=== PATIENT | female | born 1965 | race Caucasian/White ===

== ENCOUNTER 2018-01-10 23:53 | Inpatient (IN) | payer OTHER ==
--- NOTE | 2018-01-11 00:03 | HP ---
COWS - Scale Resting Pulse: 1= SC 81-100 Sweatin=Flushed/Facial Moisture Restless Observation: 3= Extraneous Movement Pupil Size: 1= Pupils >than Normal Bone or Joint Aches: 4=Acute Joint/Muscle Pain Runny Nose/ Eye Tearin= Nasal Congestion GI Upset > 30mins: 3= Vomiting/Diarrhea Tremor Observation: 2= Slight Tremor Visible Yawning Observation: 0= None Anxiety or Irritability: 2=Irritable/Anxious Goose Flesh Skin: 0=Smooth Skin COWS Score: 19 CIWA Score - CIWA Score Nausea/Vomitin Muscle Tremors: 4-Moderate,w/Arms Extend Anxiety: 4-Mod. Anxious/Guarded Agitation: 4-Moderately Restless Paroxysmal Sweats: No Perspiration Orientation: 0-Oriented Tacttile Disturbances: 0-None Auditory Disturbances: 0-None Visual Disturbances: 0-None Headache: 3-Moderate CIWA-Ar Total Score: 18 Admission ROS [facility] - HPI Chief Complaint: c/o withdrawal sx's from heroin. seeking detox txment Allergies/Adverse Reactions: Allergies Allergy/AdvReac Type Severity Reaction Status Date / Time No Known Allergies Allergy Verified 01/10/18 23:57 History of Present Illness: 52 Y.O FEMALE WITH LONG HX/O OPIOID DEPENDENCE SEEKING DETOX. CLIENT IS ALSO PRESCRIBED VALIUM. SHE WAS MADE AWARE THAT SHE WOULD BE DETOXED.SHE VERBALIZED UNDERSTANDING. SHE IS KNOWN TO THIS DETOX. SELF REFERRED. DENIES LEGALS. REPORTS 9 YEARS CLEAN TIME RELAPSING 4 MONTHS AGO Exam Limitations: No Limitations - Ebola screening Have you traveled outside of the country in the last 21 days: No (N) Have you had contact with anyone from an Ebola affected area: No Do you have a fever: No - Review of Systems Constitutional: Chills, Loss of Appetite, Malaise, Night Sweats, Unintentional Wgt. Loss EENT: reports: Nose Congestion Respiratory: reports: No Symptoms reported Cardiac: reports: No Symptoms Reported GI: reports: Nausea, Poor Appetite, Poor Fluid Intake, Vomiting, Abdominal cramping : reports: No Symptoms Reported Musculoskeletal: reports: Back Pain, Joint Pain Integumentary: reports: No Symptoms Reported Neuro: reports: No Symptoms reported Endocrine: reports: No Symptoms Reported Hematology: reports: No Symptoms Reported Psychiatric: reports: Anxious, Depressed, other (PTSD) Other Systems: Reviewed and Negative Patient History - Patient Medical History Hx Anemia: No Hx Asthma: No Hx Chronic Obstructive Pulmonary Disease (COPD): No Hx Cancer: No Hx Cardiac Disorders: No Hx Congestive Heart Failure: No Hx Hypertension: No Hx Hypercholesterolemia: No Hx Pacemaker: No HX Cerebrovascular Accident: No Hx Seizures: No Hx Dementia: No Hx Diabetes: No Hx Gastrointestinal Disorders: No Hx Liver Disease: No Hx Genitourinary Disorders: No Hx Sexually Transmitted Disorders: No Hx Renal Disease (ESRD): No Hx Thyroid Disease: No Hx Human Immunodeficiency Virus (HIV): No Hx Hepatitis C: No Hx Depression: No Hx Suicide Attempt: No Hx Bipolar Disorder: No Hx Schizophrenia: No Other Medical History: PTSD - Patient Surgical History Past Surgical History: Yes Hx Orthopedic Surgery: Yes (L KNEE) Anesthesia Reaction: No - PPD History Previous Implant?: Yes Documented Results: Negative w/o proof Implanted On Prior [facility] Admission?: No PPD to be Administered?: Yes - Reproductive History Patient is a Female of Child Bearing Age (11 -55 yrs old): Yes LMP comment: 12/17/2017 Patient : No ([facility]) - Smoking Cessation Smoking history: Current every day smoker Have you smoked in the past 12 months: Yes Aproximately how many cigarettes per day: 10 Cigars Per Day: 0 Hx Chewing Tobacco Use: No Initiated information on smoking cessation: Yes 'Breaking Loose' booklet given: 01/11/18 - Substance & Tx. History Hx Alcohol Use: No Hx Substance Use: Yes Substance Use Type: Heroin, Prescribed (VALIUM) Hx Substance Use Treatment: Yes ([facility]) - Substances Abused HEROIN Route: Inhalation Frequency: Daily Amount used: 5 BAGS Age of first use: 27 Date of Last Use: 01/10/18 VALIUM Route: Oral Frequency: 3-6 times per week Amount used: 30MG Age of first use: 44 Date of Last Use: 01/09/18 Family Disease History - Family Disease History Family Disease History: Heart Disease: Father (PPM; ALCOHOL), Mother (CVA) Admission Physical Exam [facility] - Physical General Appearance: Yes: Appropriately Dressed, Mild Distress, Tremorous, Irritable HEENTM: Yes: EOMI, Normocephalic, Normal Voice, ANJALI, Pharynx Normal, Nasal Congestion Respiratory: Yes: Chest Non-Tender, Lungs Clear, Normal Breath Sounds, No Respiratory Distress, No Accessory Muscle Use Neck: Yes: No masses,lesions,Nodules, Supple, Trachea in good position Breast: Yes: Breast Exam Deferred Cardiology: Yes: Regular Rhythm, S1, S2, Tachycardia Abdominal: Yes: Normal Bowel Sounds, Non Tender, Flat, Soft Genitourinary: Yes: Within Normal Limits Back: Yes: Within Normal Limits, Other (PSORIATIC RASH) Musculoskeletal: Yes: full range of Motion, Gait Steady Extremities: Yes: Normal Range of Motion, Non-Tender, Tremors Neurological: Yes: shooter helper II-XII NML intact, Fully Oriented, Alert, Motor Strength 5/5 Integumentary: Yes: Dry, Warm, Rash (PSORIASIS) Lymphatic: Yes: Within Normal Limits - Diagnostic (1) Opioid dependence with withdrawal Current Visit: Yes Status: Chronic (2) Sedative, hypnotic or anxiolytic dependence with withdrawal, uncomplicated Current Visit: Yes Status: Chronic (3) Nicotine dependence Current Visit: Yes Status: Chronic Qualifiers: Nicotine product type: cigarettes Substance use status: uncomplicated Qualified Code(s): F17.210 - Nicotine dependence, cigarettes, uncomplicated (4) Psoriasis Current Visit: Yes Status: Chronic Cleared for Admission [facility] - Detox or Rehab [facility] Level of Care: Medically Managed Detox Regimen/Protocol: Methadone/Valium Claeared for Rehab Admission: No
[2018-01-11 00:04] VITALS: BMI 20.5
[2018-01-11] MEDS ORDERED: MAGNESIUM CITRATE 300 ML BOTTLE PO PRN (00:22)
[2018-01-11] MEDS ORDERED: NICOTINE POLACRILEX 2 MG GUM BC PRN (00:22)
[2018-01-11] MEDS ORDERED: MAGNESIUM HYDROX 2400MG/30ML ORAL SUSPENSION 30 ML CUP PO PRN (00:22)
[2018-01-11] MEDS ORDERED: IBUPROFEN 400 MG TABLET (FP) PO PRN (00:22)
[2018-01-11] MEDS ORDERED: diazePAM 5 MG TABLET PO ONE (00:22)
[2018-01-11] MEDS ORDERED: LOPERAMIDE HCL 2 MG CAPSULE PO PRN (00:22)
[2018-01-11] MEDS ORDERED: ACETAMINOPHEN 325 MG TABLET (FP) PO PRN (00:22)
[2018-01-11] MEDS ORDERED: guaiFENesin/D-METHORPHAN HB 10 ML UNIT-DOSE CUPS PO PRN (00:22)
[2018-01-11] MEDS ORDERED: MENTHOL/PHENOL 1 EACH UD MM PRN (00:22)
[2018-01-11] MEDS ORDERED: P-EPHED 60MG/TRIPROLIDI 2.5MG TABLET PO PRN (00:22)
[2018-01-11] MEDS ORDERED: MAG HYDROX/AL HYDROX/SIMETH 30 ML UNIT-DOSE CUP PO PRN (00:22)
[2018-01-11] MEDS ORDERED: METHADONE HCL 10 MG TABLET (FOR DETOX USE ONLY) PO ONE ×3 (00:22→23:00)
[2018-01-11] MEDS: diazePAM 5 MG TABLET PO SCH ×3 (05:57→22:25)
--- NOTE | 2018-01-11 08:39 | EKG ---
Test Reason : Blood Pressure : / mmHG Vent. Rate : 084 BPM Atrial Rate : 084 BPM P-R Int : 128 ms QRS Dur : 094 ms QT Int : 396 ms P-R-T Axes : 053 034 056 degrees QTc Int : 467 ms NORMAL SINUS RHYTHM NORMAL ECG NO PREVIOUS ECGS AVAILABLE Confirmed by DILLAN LORENZ, BRUCE ([id number]) on 01/11/2018 8:39:17 AM Referred By: Adriano Vazquez Confirmed By:BRUCE GRIMALDO MD
[2018-01-11] MEDS: PRENATAL VITAMINS W/ FOLIC ACID TABLET (FP) PO SCH (10:25)
[2018-01-11] MEDS: NICOTINE 14 MG/24 HOURS TOPICAL PATCH TD SCH (10:26)
[2018-01-11] MEDS: diazePAM 5 MG TABLET PO PRN ×2 (10:26→16:57)
--- NOTE | 2018-01-11 10:26 | CONSULT ---
[facility] Psychiatric Consult - Data Date of interview: 01/11/18 Admission source: [facility] Identifying data: Ms Sesay is a 52 years old female seeking detox treatment for heroin and valium Substance Abuse History: Reports history of heroin and valium use. Refer to addiction counselor's note for further information Medical History: Significant for history of orthosurgery left knee. Patient is on suboxone 8 mg/2 mg film daily. Smokes 10 cogarettes daily
--- NOTE | 2018-01-11 13:01 | PN ---
[facility] CIWA - CIWA Score Nausea/Vomitin-Mild Nausea/No Vomiting Muscle Tremors: 4-Moderate,w/Arms Extend Anxiety: 4-Mod. Anxious/Guarded Agitation: 4-Moderately Restless Paroxysmal Sweats: 1-Minimal Palms Moist Orientation: 0-Oriented Tacttile Disturbances: 1-Very Mild Itch/Numbness Auditory Disturbances: 0-None Visual Disturbances: 0-None Headache: 0-None Present CIWA-Ar Total Score: 15 [facility] COWS - Scale Resting Pulse: 0= [place] 80 or Below Sweatin= Chills/Flushing Restless Observation: 3= Extraneous Movement Pupil Size: 0= Normal to Room Light Bone or Joint Aches: 2= Severe Diffuse Aches Runny Nose/ Eye Tearin= Runny Nose/Eyes GI Upset > 30mins: 2= Nausea/Diarrhea Tremor Observation of Outstretched Hands: 2= Slight Tremor Visible Yawning Observation: 2= >3x During Session Anxiety or Irritability: 2=Irritable/Anxious Goose Flesh Skin: 0=Smooth Skin COWS Score: 16 [facility] Progress Note (SOAP) Subjective: sweat tremor joint ache irritable agitation Objective: 01/11/18 13:01 Vital Signs Temperature 98.4 F 01/11/18 10:15 Pulse Rate 68 01/11/18 10:15 Respiratory Rate 16 01/11/18 10:15 Blood Pressure 113/64 01/11/18 10:15 O2 Sat by Pulse Oximetry (%) Laboratory Last Values HIV 1&2 Antibody Screen Negative 01/11/18 08:00 HIV P24 Antigen Negative 01/11/18 08:00 lab noted Assessment: 01/11/18 13:02 withdrawal sx Plan: continue detox
--- NOTE | 2018-01-11 15:04 | PN ---
S Progress Note Note: Patient was approached on more than 2 occasions including lunch time by song writer solicitating interview. She said that she was too tired to talk or to walk to the office. She asked that interview be postponed for tomorrow
[2018-01-11] MEDS: THIAMINE HCL 100 MG TABLET (FP) PO SCH (22:25)
[2018-01-12] MEDS: diazePAM 5 MG TABLET PO SCH ×3 (05:20→22:06)
[2018-01-12] MEDS: diazePAM 5 MG TABLET PO PRN ×3 (07:35→16:40)
--- NOTE | 2018-01-12 07:44 | CONSULT ---
[facility] Psychiatric Consult - Data Date of interview: 01/12/18 Admission source: [facility] Identifying data: This is a 52 years old female with nom psychiatric hospitalization history, with long history [id number] Opioids depenmdency, valium abuse , selfreferred and looking for detoxification frpm Opioids, Benzodiazeoivs and Nicotine Substance Abuse History: Smoking Cessation. Smoking history: Current every day smoker. Have you smoked in the past 12 months: Yes. Aproximately how many cigarettes per day: 10. Cigars Per Day: 0. Hx Chewing Tobacco Use: No. Initiated information on smoking cessation: Yes. 'Breaking Loose' booklet given : 01/11/18. - Substance & Tx. History. Hx Alcohol Use: No. Hx Substance Use: Yes. Substance Use Type: Heroin, Prescribed ([facility]). Hx Substance Use Treatment: Yes ([facility] - Substances Abused. HEROIN. Route: Inhalation. Frequency: Daily. Amount used: 5 BAGS. Age of first use: 27. Date of Last Use : 01/10/18. VALIUM. Route: Oral. Frequency: 3-6 times per week. Amount used: 30MG. Age of first use: 44. Date of Last Use: 01/09/18 Medical History: Psoriasis history Psychiatric History: Denies past psychiatric history Physical/Sexual Abuse/Trauma History: Denies Additional Comment: Observation. Detox Unit Care Protocol Mental Status Exam - Mental Status Exam Alert and Oriented to: Person Cognitive Function: Fair Patient Appearance: Unkempt Mood: Sad Affect: Flat Patient Behavior: Sedated Speech Pattern: Delayed Voice Loudness: Mildly Soft/Quiet Thought Process: Goal Oriented Thought Disorder: Being Controlled Hallucinations: Denies Suicidal Ideation: Denies Homicidal Ideation: Denies Insight/Judgement: Fair Sleep: Difficulty falling asleep Appetite: Weight loss Muscle strength/Tone: Mild Hypotonicity Gait/Station: Normal Additional Comments: Observation. Detox Unit Care Protocol Psychiatric Findings - Problem List ([place] 1, 2,3) (1) Drug-induced mood disorder Current Visit: Yes Status: Suspected (2) Nicotine dependence Current Visit: Yes Status: Chronic Qualifiers: Nicotine product type: cigarettes Substance use status: uncomplicated Qualified Code(s): F17.210 - Nicotine dependence, cigarettes, uncomplicated (3) Opioid dependence with withdrawal Current Visit: Yes Status: Chronic (4) Sedative, hypnotic or anxiolytic dependence with withdrawal, uncomplicated Current Visit: Yes Status: Chronic - Initial Treatment Plan Initial Treatment Plan: Observation. Detox Unit Care Protocol
[2018-01-12] MEDS ORDERED: METHADONE HCL 10 MG TABLET (FOR DETOX USE ONLY) PO SCH (10:00)
[2018-01-12 10:04] LABS: HEMATOCRIT 38.3 % (32.4-45.2); HEMOGLOBIN 12.4 GM/dL (10.7-15.3); MCHC 32.3 g/dl (32.0-36.0); MEAN CELL VOLUME 86.8 fl (80-96); MEAN PLT VOLUME 8.8 fl (7.5-11.1); PLATELET COUNT 191 K/MM3 (134-434); RBC 4.41 M/mm3 (3.60-5.2)
[2018-01-12 10:19] LABS: ALBUMIN 3.4 g/dl (3.4-5.0); ANION GAP 6 (8-16); BLOOD UREA NITROGEN 16 mg/dL (7-18); CHLORIDE 108 mmol/L (98-107); CO2 30 mmol/L (21-32); GLUCOSE,RANDOM 87 mg/dL (74-106); POTASSIUM 3.8 mmol/L (3.5-5.1); SGPT/ALT 17 U/L (12-78); SODIUM 144 mmol/L (136-145)
[2018-01-12 10:21] LABS: ALK PHOS 64 U/L (45-117); BILIRUBIN,TOTAL 0.5 mg/dL (0.2-1.0); CALCIUM 8.2 mg/dL (8.5-10.1); CREATININE 0.8 mg/dL (0.55-1.02); SGOT/AST 11 U/L (15-37); TOT PROT 5.8 g/dl (6.4-8.2)
[2018-01-12] MEDS: PRENATAL VITAMINS W/ FOLIC ACID TABLET (FP) PO SCH (10:38)
[2018-01-12] MEDS: NICOTINE 14 MG/24 HOURS TOPICAL PATCH TD SCH (10:38)
--- NOTE | 2018-01-12 10:38 | PN ---
S CIWA - CIWA Score Nausea/Vomitin-No Nausea/No Vomiting Muscle Tremors: 4-Moderate,w/Arms Extend Anxiety: 4-Mod. Anxious/Guarded Agitation: 3 Paroxysmal Sweats: 1-Minimal Palms Moist Orientation: 0-Oriented Tacttile Disturbances: 0-None Auditory Disturbances: 0-None Visual Disturbances: 0-None Headache: 0-None Present CIWA-Ar Total Score: 12 [facility] COWS - Scale Resting Pulse: 0= [place] 80 or Below Sweatin= Chills/Flushing Restless Observation: 3= Extraneous Movement Pupil Size: 0= Normal to Room Light Bone or Joint Aches: 1= Mild Discomfort Runny Nose/ Eye Tearin= Nasal Congestion GI Upset > 30mins: 1= Stomach Cramp Tremor Observation of Outstretched Hands: 2= Slight Tremor Visible Yawning Observation: 2= >3x During Session Anxiety or Irritability: 2=Irritable/Anxious Goose Flesh Skin: 0=Smooth Skin COWS Score: 13 S Progress Note (SOAP) Subjective: sweat tremor irritable restlessness agitation joint ache Objective: 01/12/18 10:36 Vital Signs Temperature 97.3 F L 01/12/18 06:33 Pulse Rate 63 01/12/18 06:33 Respiratory Rate 18 01/12/18 06:33 Blood Pressure 157/89 01/12/18 06:33 O2 Sat by Pulse Oximetry (%) Laboratory Last Values WBC 7.0 K/mm3 (4.0-10.0) 01/12/18 06:00 RBC 4.41 M/mm3 (3.60-5.2) 01/12/18 06:00 Hgb 12.4 GM/dL (10.7-15.3) 01/12/18 06:00 Hct 38.3 % (32.4-45.2) 01/12/18 06:00 MCV 86.8 fl (80-96) 01/12/18 06:00 MCH 28.0 pg (25.7-33.7) 01/12/18 06:00 MCHC 32.3 g/dl (32.0-36.0) 01/12/18 06:00 RDW 13.0 % (11.6-15.6) 01/12/18 06:00 Plt Count 191 K/MM3 (134-434) 01/12/18 06:00 MPV 8.8 fl (7.5-11.1) 01/12/18 06:00 Sodium 144 mmol/L (136-145) 01/12/18 06:00 Potassium 3.8 mmol/L (3.5-5.1) 01/12/18 06:00 Chloride 108 mmol/L (98-107) H 01/12/18 06:00 Carbon Dioxide 30 mmol/L (21-32) 01/12/18 06:00 Anion Gap 6 (8-16) L 01/12/18 06:00 BUN 16 mg/dL (7-18) 01/12/18 06:00 Creatinine 0.8 mg/dL (0.55-1.02) 01/12/18 06:00 Creat Clearance w eGFR > 60 (>60) 01/12/18 06:00 Random Glucose 87 mg/dL (74-106) 01/12/18 06:00 Calcium 8.2 mg/dL (8.5-10.1) L 01/12/18 06:00 Total Bilirubin 0.5 mg/dL (0.2-1.0) 01/12/18 06:00 AST 11 U/L (15-37) L 01/12/18 06:00 ALT 17 U/L (12-78) 01/12/18 06:00 Alkaline Phosphatase 64 U/L (45-117) 01/12/18 06:00 Total Protein 5.8 g/dl (6.4-8.2) L 01/12/18 06:00 Albumin 3.4 g/dl (3.4-5.0) 01/12/18 06:00 HIV 1&2 Antibody Screen Negative 01/11/18 08:00 HIV P24 Antigen Negative 01/11/18 08:00 lab noted Assessment: 01/12/18 10:36 withdrawal sx Plan: continue detox
[2018-01-12] MEDS ORDERED: METHOCARBAMOL 500 MG TABLET PO ONE (11:35)
[2018-01-12 14:20] LABS: URINE APPEARANCE SLCLOUDY; URINE BILIRUBIN NEGATIVE (NEGATIVE); URINE BLOOD NEGATIVE (NEGATIVE); URINE COLOR YELLOW; URINE GLUCOSE (UA) NEGATIVE (NEGATIVE); URINE KETONE NEGATIVE (NEGATIVE); URINE LEUK ESTERASE NEGATIVE (NEGATIVE); URINE NITRITE NEGATIVE (NEGATIVE); URINE PROTEIN NEGATIVE (NEGATIVE)
[2018-01-12] MEDS: diphenhydrAMINE HCL 25 MG CAPSULE (FP) PO PRN (22:06)
[2018-01-12] MEDS: THIAMINE HCL 100 MG TABLET (FP) PO SCH (22:06)
[2018-01-13] MEDS: diazePAM 5 MG TABLET PO PRN ×3 (05:51→17:53)
--- NOTE | 2018-01-13 09:23 | PN ---
[facility] Progress Note (SOAP) Subjective: sweat tremor anxiety joint aches restlessness irritability patient has confidence that by 01/15/18 should be able to transfer to [facility] continue her recovery journal Objective: 01/13/18 09:22 Vital Signs Temperature 97.7 F 01/13/18 06:28 Pulse Rate 75 01/13/18 06:28 Respiratory Rate 16 01/13/18 06:28 Blood Pressure 128/69 01/13/18 06:28 O2 Sat by Pulse Oximetry (%) Laboratory Last Values WBC 7.0 K/mm3 (4.0-10.0) 01/12/18 06:00 RBC 4.41 M/mm3 (3.60-5.2) 01/12/18 06:00 Hgb 12.4 GM/dL (10.7-15.3) 01/12/18 06:00 Hct 38.3 % (32.4-45.2) 01/12/18 06:00 MCV 86.8 fl (80-96) 01/12/18 06:00 MCH 28.0 pg (25.7-33.7) 01/12/18 06:00 MCHC 32.3 g/dl (32.0-36.0) 01/12/18 06:00 RDW 13.0 % (11.6-15.6) 01/12/18 06:00 Plt Count 191 K/MM3 (134-434) 01/12/18 06:00 MPV 8.8 fl (7.5-11.1) 01/12/18 06:00 Sodium 144 mmol/L (136-145) 01/12/18 06:00 Potassium 3.8 mmol/L (3.5-5.1) 01/12/18 06:00 Chloride 108 mmol/L (98-107) H 01/12/18 06:00 Carbon Dioxide 30 mmol/L (21-32) 01/12/18 06:00 Anion Gap 6 (8-16) L 01/12/18 06:00 BUN 16 mg/dL (7-18) 01/12/18 06:00 Creatinine 0.8 mg/dL (0.55-1.02) 01/12/18 06:00 Creat Clearance w eGFR > 60 (>60) 01/12/18 06:00 Random Glucose 87 mg/dL (74-106) 01/12/18 06:00 Calcium 8.2 mg/dL (8.5-10.1) L 01/12/18 06:00 Total Bilirubin 0.5 mg/dL (0.2-1.0) 01/12/18 06:00 AST 11 U/L (15-37) L 01/12/18 06:00 ALT 17 U/L (12-78) 01/12/18 06:00 Alkaline Phosphatase 64 U/L (45-117) 01/12/18 06:00 Total Protein 5.8 g/dl (6.4-8.2) L 01/12/18 06:00 Albumin 3.4 g/dl (3.4-5.0) 01/12/18 06:00 Urine Color Yellow 01/12/18 12:45 Urine Appearance Slcloudy 01/12/18 12:45 Urine pH 7.0 (5.0-8.0) 01/12/18 12:45 Ur Specific [place] 1.017 (1.001-1.035) 01/12/18 12:45 Urine Protein Negative (NEGATIVE) 01/12/18 12:45 Urine Glucose (UA) Negative (NEGATIVE) 01/12/18 12:45 Urine Ketones Negative (NEGATIVE) 01/12/18 12:45 Urine Blood Negative (NEGATIVE) 01/12/18 12:45 Urine Nitrite Negative (NEGATIVE) 01/12/18 12:45 Urine Bilirubin Negative (NEGATIVE) 01/12/18 12:45 Urine Urobilinogen 2.0 mg/dL (0.2-1.0) H 01/12/18 12:45 Ur Leukocyte Esterase Negative (NEGATIVE) 01/12/18 12:45 RPR Titer Nonreactive (NONREACTIVE) 01/12/18 06:00 HIV 1&2 Antibody Screen Negative 01/11/18 08:00 HIV P24 Antigen Negative 01/11/18 08:00 lab noted Assessment: 01/13/18 09:23 withdrawal sx 01/13/18 09:25 discharge target date 01/15/18 Plan: continue detox one dose methadone 15 mg today 10 shala 01/14/18 5 mg 01/15/18 patient agrees the regimen adjusted
[2018-01-13] MEDS ORDERED: METHADONE HCL 5 MG TABLET (FOR DETOX USE ONLY) PO SCH (10:00)
[2018-01-13] MEDS: diazePAM 5 MG TABLET PO SCH ×2 (10:44→22:31)
[2018-01-13] MEDS: PRENATAL VITAMINS W/ FOLIC ACID TABLET (FP) PO SCH (10:44)
[2018-01-13] MEDS: NICOTINE 14 MG/24 HOURS TOPICAL PATCH TD SCH (10:45)
[2018-01-13] MEDS: diphenhydrAMINE HCL 25 MG CAPSULE (FP) PO PRN (22:30)
[2018-01-13] MEDS: THIAMINE HCL 100 MG TABLET (FP) PO SCH (22:30)
[2018-01-14] MEDS ORDERED: METHADONE HCL 10 MG TABLET (FOR DETOX USE ONLY) PO SCH (10:00)
[2018-01-14] MEDS: diazePAM 5 MG TABLET PO SCH ×2 (10:31→22:09)
[2018-01-14] MEDS: NICOTINE 14 MG/24 HOURS TOPICAL PATCH TD SCH (10:31)
[2018-01-14] MEDS: PRENATAL VITAMINS W/ FOLIC ACID TABLET (FP) PO SCH (10:31)
--- NOTE | 2018-01-14 11:28 | PN ---
S Progress Note (SOAP) Subjective: reports feel better less sweat no tremor tolerates food and fluid well alert oriented x 3 Objective: 01/14/18 11:26 Vital Signs Temperature 98.2 F 01/14/18 10:33 Pulse Rate 77 01/14/18 10:33 Respiratory Rate 18 01/14/18 10:33 Blood Pressure 135/85 01/14/18 10:33 O2 Sat by Pulse Oximetry (%) Laboratory Last Values WBC 7.0 K/mm3 (4.0-10.0) 01/12/18 06:00 RBC 4.41 M/mm3 (3.60-5.2) 01/12/18 06:00 Hgb 12.4 GM/dL (10.7-15.3) 01/12/18 06:00 Hct 38.3 % (32.4-45.2) 01/12/18 06:00 MCV 86.8 fl (80-96) 01/12/18 06:00 MCH 28.0 pg (25.7-33.7) 01/12/18 06:00 MCHC 32.3 g/dl (32.0-36.0) 01/12/18 06:00 RDW 13.0 % (11.6-15.6) 01/12/18 06:00 Plt Count 191 K/MM3 (134-434) 01/12/18 06:00 MPV 8.8 fl (7.5-11.1) 01/12/18 06:00 Sodium 144 mmol/L (136-145) 01/12/18 06:00 Potassium 3.8 mmol/L (3.5-5.1) 01/12/18 06:00 Chloride 108 mmol/L (98-107) H 01/12/18 06:00 Carbon Dioxide 30 mmol/L (21-32) 01/12/18 06:00 Anion Gap 6 (8-16) L 01/12/18 06:00 BUN 16 mg/dL (7-18) 01/12/18 06:00 Creatinine 0.8 mg/dL (0.55-1.02) 01/12/18 06:00 Creat Clearance w eGFR > 60 (>60) 01/12/18 06:00 Random Glucose 87 mg/dL (74-106) 01/12/18 06:00 Calcium 8.2 mg/dL (8.5-10.1) L 01/12/18 06:00 Total Bilirubin 0.5 mg/dL (0.2-1.0) 01/12/18 06:00 AST 11 U/L (15-37) L 01/12/18 06:00 ALT 17 U/L (12-78) 01/12/18 06:00 Alkaline Phosphatase 64 U/L (45-117) 01/12/18 06:00 Total Protein 5.8 g/dl (6.4-8.2) L 01/12/18 06:00 Albumin 3.4 g/dl (3.4-5.0) 01/12/18 06:00 Urine Color Yellow 01/12/18 12:45 Urine Appearance Slcloudy 01/12/18 12:45 Urine pH 7.0 (5.0-8.0) 01/12/18 12:45 Ur Specific [place] 1.017 (1.001-1.035) 01/12/18 12:45 Urine Protein Negative (NEGATIVE) 01/12/18 12:45 Urine Glucose (UA) Negative (NEGATIVE) 01/12/18 12:45 Urine Ketones Negative (NEGATIVE) 01/12/18 12:45 Urine Blood Negative (NEGATIVE) 01/12/18 12:45 Urine Nitrite Negative (NEGATIVE) 01/12/18 12:45 Urine Bilirubin Negative (NEGATIVE) 01/12/18 12:45 Urine Urobilinogen 2.0 mg/dL (0.2-1.0) H 01/12/18 12:45 Ur Leukocyte Esterase Negative (NEGATIVE) 01/12/18 12:45 RPR Titer Nonreactive (NONREACTIVE) 01/12/18 06:00 HIV 1&2 Antibody Screen Negative 01/11/18 08:00 HIV P24 Antigen Negative 01/11/18 08:00 lab noted Assessment: 01/14/18 11:27 mild withdrawal sx Plan: medically supervised detox
[2018-01-14] MEDS ORDERED: hydrOXYzine PAMOATE 50 MG CAPSULE (FP) PO PRN (15:20)
[2018-01-14] MEDS: THIAMINE HCL 100 MG TABLET (FP) PO SCH (22:09)
[2018-01-14] MEDS: diphenhydrAMINE HCL 25 MG CAPSULE (FP) PO PRN ×2 (22:10→22:13)
[2018-01-15] MEDS ORDERED: METHADONE HCL 5 MG TABLET (FOR DETOX USE ONLY) PO SCH (06:00)
[2018-01-15 06:43] VITALS: BP 129/76; PULSE 73; TEMP 97.3
--- NOTE | 2018-01-15 08:32 | DS ---
[facility] Detox Discharge Summary Admission Date: 01/10/18 Discharge Date: 01/15/18 - History Present History: Alcohol Dependence, Sedative Dependence - Physical Exam Results Vital Signs: Vital Signs Temperature 97.3 F L 01/15/18 06:00 Pulse Rate 73 01/15/18 06:00 Respiratory Rate 18 01/15/18 06:00 Blood Pressure 129/76 01/15/18 06:00 O2 Sat by Pulse Oximetry (%) Pertinent Admission Physical Exam Findings: withdrawal sx Laboratory Last Values WBC 7.0 K/mm3 (4.0-10.0) 01/12/18 06:00 RBC 4.41 M/mm3 (3.60-5.2) 01/12/18 06:00 Hgb 12.4 GM/dL (10.7-15.3) 01/12/18 06:00 Hct 38.3 % (32.4-45.2) 01/12/18 06:00 MCV 86.8 fl (80-96) 01/12/18 06:00 MCH 28.0 pg (25.7-33.7) 01/12/18 06:00 MCHC 32.3 g/dl (32.0-36.0) 01/12/18 06:00 RDW 13.0 % (11.6-15.6) 01/12/18 06:00 Plt Count 191 K/MM3 (134-434) 01/12/18 06:00 MPV 8.8 fl (7.5-11.1) 01/12/18 06:00 Sodium 144 mmol/L (136-145) 01/12/18 06:00 Potassium 3.8 mmol/L (3.5-5.1) 01/12/18 06:00 Chloride 108 mmol/L (98-107) H 01/12/18 06:00 Carbon Dioxide 30 mmol/L (21-32) 01/12/18 06:00 Anion Gap 6 (8-16) L 01/12/18 06:00 BUN 16 mg/dL (7-18) 01/12/18 06:00 Creatinine 0.8 mg/dL (0.55-1.02) 01/12/18 06:00 Creat Clearance w eGFR > 60 (>60) 01/12/18 06:00 Random Glucose 87 mg/dL (74-106) 01/12/18 06:00 Calcium 8.2 mg/dL (8.5-10.1) L 01/12/18 06:00 Total Bilirubin 0.5 mg/dL (0.2-1.0) 01/12/18 06:00 AST 11 U/L (15-37) L 01/12/18 06:00 ALT 17 U/L (12-78) 01/12/18 06:00 Alkaline Phosphatase 64 U/L (45-117) 01/12/18 06:00 Total Protein 5.8 g/dl (6.4-8.2) L 01/12/18 06:00 Albumin 3.4 g/dl (3.4-5.0) 01/12/18 06:00 Urine Color Yellow 01/12/18 12:45 Urine Appearance Slcloudy 01/12/18 12:45 Urine pH 7.0 (5.0-8.0) 01/12/18 12:45 Ur Specific [place] 1.017 (1.001-1.035) 01/12/18 12:45 Urine Protein Negative (NEGATIVE) 01/12/18 12:45 Urine Glucose (UA) Negative (NEGATIVE) 01/12/18 12:45 Urine Ketones Negative (NEGATIVE) 01/12/18 12:45 Urine Blood Negative (NEGATIVE) 01/12/18 12:45 Urine Nitrite Negative (NEGATIVE) 01/12/18 12:45 Urine Bilirubin Negative (NEGATIVE) 01/12/18 12:45 Urine Urobilinogen 2.0 mg/dL (0.2-1.0) H 01/12/18 12:45 Ur Leukocyte Esterase Negative (NEGATIVE) 01/12/18 12:45 RPR Titer Nonreactive (NONREACTIVE) 01/12/18 06:00 HIV 1&2 Antibody Screen Negative 01/11/18 08:00 HIV P24 Antigen Negative 01/11/18 08:00 lab noted - Treatment Hospital Course: Detox Protocol Followed, Detoxed Safely, Responded well, Discharged Condition Good, Rehab Referral Accepted Patient has Accepted a Rehab Referral to: [facility] - Medication Discharge Medications: Ambulatory Orders NK [No Known Home Medication] 01/12/18 - Diagnosis (1) Opioid dependence with withdrawal Current Visit: Yes Status: Acute (2) Sedative, hypnotic or anxiolytic dependence with withdrawal, uncomplicated Current Visit: Yes Status: Acute - AMA Did Patient Leave Against Medical Advice: No
[2018-01-15] MEDS: PRENATAL VITAMINS W/ FOLIC ACID TABLET (FP) PO SCH (08:59)
[2018-01-15] MEDS: NICOTINE 14 MG/24 HOURS TOPICAL PATCH TD SCH (09:01)
[2018-01-15] MEDS ORDERED: diazePAM 5 MG TABLET PO SCH (10:00)
[2018-01-15] MEDS ORDERED: METHADONE HCL 10 MG TABLET (FOR DETOX USE ONLY) PO SCH (10:00)
[2018-01-16] MEDS ORDERED: METHADONE HCL 5 MG TABLET (FOR DETOX USE ONLY) PO SCH (06:00)
== END 2018-01-15 09:14 | disposition home or self-care (01) | DRG 773 ==
LOC: YASAS 23:53 → Y6N 23:54
PROVIDERS: ADMIT Internal Medicine; ATTEND Internal Medicine
PROC: HZ2ZZZZ Detoxification Services for Substance Abuse Treatment (ICD-10-PCS; principal; 2018-01-10)
DX: F11.23 Opioid dependence with withdrawal (principal); F13.230 Sedative, hypnotic or anxiolytic dependence with withdrawal, uncomplicated; F17.210 Nicotine dependence, cigarettes, uncomplicated; F19.24 Other psychoactive substance dependence with psychoactive substance-induced mood disorder; L40.9 Psoriasis, unspecified
CPT/HCPCS: 36415; 80053; 81003; 85027; 86593; 87389; 93005; 93010

== ENCOUNTER 2019-03-07 17:53 | Inpatient (IN) | payer OTHER ==
[2019-03-07 18:54] VITALS: BMI 23.3
--- NOTE | 2019-03-07 19:16 | HP ---
CIWA Score Nausea/Vomitin-No Nausea/No Vomiting Muscle Tremors: 4-Moderate,w/Arms Extend Anxiety: 4-Mod. Anxious/Guarded Agitation: 2 Paroxysmal Sweats: 3 (Increased facial moissture) Orientation: 0-Oriented Tacttile Disturbances: 0-None Auditory Disturbances: 0-None Visual Disturbances: 0-None Headache: 2-Mild CIWA-Ar Total Score: 15 - Admission Criteria OASAS Guidelines: Admission for Medically Managed Detox: Requires at least one of the followin. CIWA greater than 12 2. Seizures within the past 24 hours 3. Delirium tremens within the past 24 hours 4. Hallucinations within the past 24 hours 5. Acute intervention needed for co occurring medical disorder 6. Acute intervention needed for co occurring psychiatric disorder 7. Severe withdrawal that cannot be handled at a lower level of care (continued vomiting, continued diarrhea, abnormal vital signs) requiring intravenous medication and/or fluids 8. Patient presents the following: CIWA greater than 12 Admission Criteria Met: Admission criteria met Admission ROS [facility] Chief Complaint: Having withdrawal symptoms from Valium. Allergies/Adverse Reactions: Allergies Allergy/AdvReac Type Severity Reaction Status Date / Time No Known Allergies Allergy Verified 03/07/19 18:54 History of Present Illness: Here requesting valium detox. States wants to continue on Suboxone. Heroin use began at age 27. Had 10 years of sobriety. Restarted use at age 37. Has been on Suboxone for approx 7-10 years. Valium prescribed since . Wants to get off. Last took Valium 2 days go. Nicotine use began at age 16. Switched to intermittent Jhuul use 3-4 days ago. Denies hx seizures, blackouts, overdoses. PMHx: HTN, Herniated disc - LB/Neck; (R) knee pain, Asthma years ago - no recent exacerbation, MHHx: Anxiety. Denies thoughts of harming self or others. Patient states name on last prescription was spelled incorrectly. Patient Name: Ashley White Date: 1965 Address: [address] [address] Sex: Female Rx Written Rx Dispensed Drug Quantity Days Supply Prescriber Name 02/13/2019 02/14/2019 clonazepam 1 mg tablet 60 30 Carlos Shaw MD 02/13/2019 02/13/2019 buprenorphine-naloxone 8-2 mg sl tablet 60 30 Carlos Shaw MD Patient Name: Ashley Sesay Date: 1965 Address: [address] [place] [address] [place] [address] Sex: Female Rx Written Rx Dispensed Drug Quantity Days Supply Prescriber Name 12/29/2018 01/06/2019 suboxone 8 mg-2 mg sl film 8 8 Travis Connell B, MD 12/08/2018 12/09/2018 suboxone 4 mg-1 mg sl film 15 15 Travis Connell B, MD 11/16/2018 11/16/2018 diazepam 10 mg tablet 120 30 Hermelindo Smith MD 10/20/2018 10/21/2018 suboxone 12 mg-3 mg sl film 60 30 Travis Connell B, MD 10/15/2018 10/15/2018 diazepam 10 mg tablet 120 30 Hermelindo Smith MD 09/08/2018 09/21/2018 suboxone 12 mg-3 mg sl film 60 30 Travis Connell B, MD 09/15/2018 09/16/2018 diazepam 10 mg tablet 120 30 Maikol Townsend MD 08/24/2018 08/24/2018 suboxone 12 mg-3 mg sl film 60 30 Conrad Luciano MD 08/12/2018 08/16/2018 suboxone 12 mg-3 mg sl film 14 7 Marc Esparza MD 07/21/2018 07/21/2018 diazepam 10 mg tablet 120 30 Hermelindo Smith MD 07/07/2018 07/18/2018 suboxone 12 mg-3 mg sl film 60 30 Monae Vidales 06/02/2018 06/19/2018 suboxone 12 mg-3 mg sl film 60 30 Juancarlos Kelly MD 05/28/2018 06/01/2018 diazepam 10 mg tablet 120 30 Hermelindo Smith MD 05/19/2018 05/21/2018 suboxone 12 mg-3 mg sl film 60 30 Juancarlos Kelly MD 04/30/2018 05/01/2018 diazepam 10 mg tablet 120 30 Hermelindo Smith MD 03/31/2018 04/16/2018 suboxone 12 mg-3 mg sl film 60 30 Marc Esparza MD 03/26/2018 03/31/2018 diazepam 10 mg tablet 120 30 Hermelindo Smith MD 03/17/2018 03/19/2018 suboxone 12 mg-3 mg sl film 60 30 Abena Echeverria Patient Name: Ashley Sesay Date: 1965 Address: [place] [address] Sex: Female Rx Written Rx Dispensed Drug Quantity Days Supply Prescriber Name 12/14/2018 12/14/2018 diazepam 10 mg tablet 120 30 Hermelindo Smith MD Exam Limitations: No Limitations - Ebola screening Have you traveled outside of the country in the last 21 days: No (N) Have you had contact with anyone from an Ebola affected area: No Do you have a fever: No - Review of Systems Constitutional: Chills, Diaphoresis, Changes in sleep (Diofficulty falling and staying asleep - takes Seroquel) EENT: reports: Blurred Vision Respiratory: reports: No Symptoms reported Cardiac: reports: No Symptoms Reported GI: reports: No Symptoms Reported : reports: No Symptoms Reported Musculoskeletal: reports: Back Pain (Chronic intermittent back, neck, and (R) knee pain. Pain is achy and "9") Integumentary: reports: Rash (Hx psoriasis buttock and (L) arm) Neuro: reports: Headache (mild) Endocrine: reports: Increased Thirst Hematology: reports: Anemia (Iron deficiency in past. Not checked recently) Psychiatric: reports: Judgement Intact, Orientated x3, Agitated, Anxious ( Denies thoughts of harming self or others.) Patient History - Patient Medical History Hx Anemia: No Hx Asthma: No Hx Chronic Obstructive Pulmonary Disease (COPD): No Hx Cancer: No Hx Cardiac Disorders: No Hx Congestive Heart Failure: No Hx Hypertension: No Hx Hypercholesterolemia: No Hx Pacemaker: No HX Cerebrovascular Accident: No Hx Seizures: No Hx Dementia: No Hx Diabetes: No Hx Gastrointestinal Disorders: No Hx Liver Disease: No Hx Genitourinary Disorders: No Hx Sexually Transmitted Disorders: No Hx Renal Disease (ESRD): No Hx Thyroid Disease: No Hx Human Immunodeficiency Virus (HIV): No Hx Hepatitis C: No Hx Depression: No Hx Suicide Attempt: No Hx Bipolar Disorder: No Hx Schizophrenia: No - Patient Surgical History Past Surgical History: Yes Hx Orthopedic Surgery: Yes (L KNEE surgery) Anesthesia Reaction: No - PPD History Previous Implant?: Yes Documented Results: Negative w/o proof Implanted On Prior [facility] Admission?: Yes Date: 01/13/18 PPD to be Administered?: Yes - Reproductive History Patient is a Female of Child Bearing Age (11 -55 yrs old): Yes Last Menstrual Period: 12/01/18 Patient : No - Smoking Cessation Smoking history: Current every day smoker Have you smoked in the past 12 months: Yes Aproximately how many cigarettes per day: 10 (Also uses Jhuul) Cigars Per Day: 0 Hx Chewing Tobacco Use: No Initiated information on smoking cessation: Yes 'Breaking Loose' booklet given: 03/07/19 - Substance & Tx. History Hx Alcohol Use: No Hx Substance Use: Yes Substance Use Type: Heroin, Prescribed (Valium) - Substances abused Diazepam Substance route: Oral Frequency: Daily Amount used: 10mg Age of first use: 50 Date of last use: 03/04/19 Alcohol Substance route: Oral Frequency: Daily Amount used: 10mg Age of first use: 50 Date of last use: 03/04/19 Family Disease History - Family Disease History Family Disease History: Heart Disease: Father (PPM; ALCOHOL), Mother (CVA) Admission Physical Exam S - Vital Signs Vital Signs: Vital Signs - 24 hr 03/07/19 18:42 Temperature 98.7 F Pulse Rate 98 H Respiratory 18 Rate Blood Pressure 128/80 - Physical General Appearance: Yes: Nourished, Appropriately Dressed, Mild Distress, Sweating (Increased facial moisture) HEENTM: Yes: EOMI (Jerking movements of eyes upon lateral gaze), Hearing grossly Normal, Normocephalic, ANJALI, Pharynx Normal Respiratory: Yes: Lungs Clear, Normal Breath Sounds, No Respiratory Distress Neck: Yes: No masses,lesions,Nodules, Supple Breast: Yes: Breast Exam Deferred Cardiology: Yes: Regular Rhythm, Regular Rate, S1, S2 Abdominal: Yes: Flat, Soft, Tenderness (RUQ tenderness upon deep palpation. No guarding. No rebound.) Genitourinary: Yes: Within Normal Limits Back: Yes: Normal Inspection Musculoskeletal: Yes: full range of Motion, Gait Steady Extremities: Yes: Normal Capillary Refill, Normal Range of Motion, Non-Tender, Tremors (Increased tremors w/ arms elevation) Neurological: Yes: sanitarian II-XII NML intact (Jerking movements of eyes upon lateral gaze), Fully Oriented, Alert, Motor Strength 5/5, Normal Mood/Affect Integumentary: Yes: Normal Color, Dry (Decreased skin turgor except for increased facial moisture/), Warm, Diaphoresis (Increased facial moisture) Lymphatic: Yes: Within Normal Limits - Diagnostic (1) Opioid dependence on agonist therapy Current Visit: Yes Status: Chronic Comment: on Suboxone (2) Sedative, hypnotic or anxiolytic dependence with withdrawal, uncomplicated Current Visit: Yes Status: Acute (3) Nicotine dependence Current Visit: Yes Status: Chronic Qualifiers: Nicotine product type: cigarettes Substance use status: uncomplicated Qualified Code(s): F17.210 - Nicotine dependence, cigarettes, uncomplicated (4) Psoriasis Current Visit: Yes Status: Chronic (5) Abdominal tenderness without rebound tenderness Current Visit: Yes Status: Chronic Qualifiers: Abdominal location: right upper quadrant Qualified Code(s): R10.811 - Right upper quadrant abdominal tenderness Cleared for Admission [facility] - Detox or Rehab [facility] Level of Care: Medically Managed Detox Regimen/Protocol: Valium Breathalyzer - Breathalyzer Breathalyzer: 0 POC Urine test - Test device test lot number: [id number] Expiration date: 07/31/20 - Control test control: Yes - Result Urine Test Results: Negative - NO line present Urine Drug Screen - Test Device Lot number: [id number] Expiration date: 02/28/20 - Control Is test valid?: Yes - Results Drug screen NEGATIVE: No Urine drug screen results: BZO-Benzodiazepines, BUP-Suboxone Inpatient Rehab Admission - Rehab Decision to Admit Inpatient rehab admission?: No
[2019-03-07] MEDS ORDERED: MAG HYDROX/AL HYDROX/SIMETH 30 ML UNIT-DOSE CUP PO PRN (20:01)
[2019-03-07] MEDS ORDERED: guaiFENesin 200 MG/10 ML 10 ML UNIT-DOSE CUPS PO PRN (20:01)
[2019-03-07] MEDS ORDERED: MELATONIN 5 MG TABLETS PO PRN (20:01)
[2019-03-07] MEDS ORDERED: BISMUTH SUBSALICYLATE 524 MG/30 ML UD PO PRN (20:01)
[2019-03-07] MEDS ORDERED: MAGNESIUM HYDROX 2400MG/30ML ORAL SUSPENSION 30 ML CUP PO PRN (20:01)
[2019-03-07] MEDS ORDERED: MENTHOL/PHENOL 1 EACH UD MM PRN (20:01)
[2019-03-07] MEDS ORDERED: LORazepam 2 MG TABLET PO ONE (20:01)
[2019-03-07] MEDS ORDERED: MAGNESIUM CITRATE 300 ML BOTTLE PO PRN (20:01)
[2019-03-07] MEDS ORDERED: NICOTINE POLACRILEX 2 MG GUM BUC PRN (20:01)
[2019-03-07] MEDS ORDERED: ACETAMINOPHEN 325 MG TABLET (FP) PO PRN ×2 (20:01)
[2019-03-07] MEDS ORDERED: IBUPROFEN 400 MG TABLET (FP) PO PRN (20:01)
[2019-03-07] MEDS ORDERED: PROCHLORPERAZINE MALEATE 5 MG TABLET PO PRN (20:01)
[2019-03-07] MEDS ORDERED: METHOCARBAMOL 500 MG TABLET PO PRN (20:01)
--- NOTE | 2019-03-07 20:22 | HP ---
CIWA Score Nausea/Vomitin-No Nausea/No Vomiting Muscle Tremors: 4-Moderate,w/Arms Extend Anxiety: 4-Mod. Anxious/Guarded Agitation: 2 Paroxysmal Sweats: 3 (Increased facial moissture) Orientation: 0-Oriented Tacttile Disturbances: 0-None Auditory Disturbances: 0-None Visual Disturbances: 0-None Headache: 2-Mild CIWA-Ar Total Score: 15 - Admission Criteria OASAS Guidelines: Admission for Medically Managed Detox: Requires at least one of the followin. CIWA greater than 12 2. Seizures within the past 24 hours 3. Delirium tremens within the past 24 hours 4. Hallucinations within the past 24 hours 5. Acute intervention needed for co occurring medical disorder 6. Acute intervention needed for co occurring psychiatric disorder 7. Severe withdrawal that cannot be handled at a lower level of care (continued vomiting, continued diarrhea, abnormal vital signs) requiring intravenous medication and/or fluids 8. Admission ROS [facility] Allergies/Adverse Reactions: Allergies Allergy/AdvReac Type Severity Reaction Status Date / Time No Known Allergies Allergy Verified 03/07/19 18:54 - Ebola screening Have you traveled outside of the country in the last 21 days: No (N) Have you had contact with anyone from an Ebola affected area: No Do you have a fever: No Patient History - Patient Medical History Hx Anemia: No Hx Asthma: No Hx Chronic Obstructive Pulmonary Disease (COPD): No Hx Cancer: No Hx Cardiac Disorders: No Hx Congestive Heart Failure: No Hx Hypertension: No Hx Hypercholesterolemia: No Hx Pacemaker: No HX Cerebrovascular Accident: No Hx Seizures: No Hx Dementia: No Hx Diabetes: No Hx Gastrointestinal Disorders: No Hx Liver Disease: No Hx Genitourinary Disorders: No Hx Sexually Transmitted Disorders: No Hx Renal Disease (ESRD): No Hx Thyroid Disease: No Hx Human Immunodeficiency Virus (HIV): No Hx Hepatitis C: No Hx Depression: No Hx Suicide Attempt: No Hx Bipolar Disorder: No Hx Schizophrenia: No - Patient Surgical History Past Surgical History: Yes Hx Orthopedic Surgery: Yes (L KNEE surgery) Anesthesia Reaction: No - PPD History Previous Implant?: Yes Documented Results: Negative w/o proof Implanted On Prior R Admission?: Yes Date: 01/13/18 - Reproductive History Last Menstrual Period: 12/01/18 Patient : No - Smoking Cessation Smoking history: Current every day smoker Have you smoked in the past 12 months: Yes Aproximately how many cigarettes per day: 10 Cigars Per Day: 0 Hx Chewing Tobacco Use: No - Substances abused Diazepam Substance route: Oral Frequency: Daily Amount used: 10mg Age of first use: 50 Date of last use: 03/04/19 Alcohol Substance route: Oral Frequency: Daily Amount used: 10mg Age of first use: 50 Date of last use: 03/04/19 Family Disease History - Family Disease History Family Disease History: Heart Disease: Father (PPM; ALCOHOL), Mother (CVA) Admission Physical Exam [facility] - Vital Signs Vital Signs: Vital Signs - 24 hr 03/07/19 03/07/19 18:42 19:56 Temperature 98.7 F 98.7 F Pulse Rate 98 H 98 H Respiratory 18 18 Rate Blood Pressure 128/80 128/80 Breathalyzer - Breathalyzer Breathalyzer: 0 POC Urine test - Test device test lot number: [id number] Expiration date: 07/31/20 - Control test control: Yes - Result Urine Test Results: Negative - NO line present Urine Drug Screen - Test Device Lot number: [id number] Expiration date: 02/28/20 - Control Is test valid?: Yes - Results Drug screen NEGATIVE: No Urine drug screen results: BZO-Benzodiazepines, BUP-Suboxone
[2019-03-07] MEDS: BUPRENORPHINE/NALOXONE 8 MG/2 MG FILM PACKET SL SCH (22:25)
[2019-03-07] MEDS: THIAMINE HCL 100 MG TABLET (FP) PO SCH (22:25)
[2019-03-07] MEDS: LORazepam 2 MG TABLET PO SCH (22:28)
[2019-03-07] MEDS ORDERED: QUEtiapine FUMARATE 100 MG TABLET (FP) PO ONE (23:00)
[2019-03-08] MEDS: LORazepam 2 MG TABLET PO SCH ×3 (05:25→16:20)
[2019-03-08 10:12] LABS: HEMATOCRIT 39.4 % (32.4-45.2); HEMOGLOBIN 12.9 GM/dL (10.7-15.3); MCHC 32.8 g/dl (32.0-36.0); MEAN CELL VOLUME 88.2 fl (80-96); MEAN PLT VOLUME 8.8 fl (7.5-11.1); PLATELET COUNT 220 K/MM3 (134-434); RBC 4.46 M/mm3 (3.60-5.2); RDW 13.3 % (11.6-15.6)
[2019-03-08 10:28] LABS: ALBUMIN 3.7 g/dl (3.4-5.0); ALK PHOS 91 U/L (45-117); ANION GAP 7 MMOL/L (8-16); BILIRUBIN,TOTAL 1.3 mg/dL (0.2-1); BLOOD UREA NITROGEN 19 mg/dL (7-18); CALCIUM 8.6 mg/dL (8.5-10.1); CHLORIDE 108 mmol/L (98-107); CO2 29 mmol/L (21-32); CREATININE 0.7 mg/dL (0.55-1.3); GLUCOSE,RANDOM 73 mg/dL (74-106); POTASSIUM 4.1 mmol/L (3.5-5.1); SGOT/AST 21 U/L (15-37); SGPT/ALT 68 U/L (13-61); SODIUM 144 mmol/L (136-145); TOT PROT 6.6 g/dl (6.4-8.2)
[2019-03-08] MEDS: NICOTINE 21 MG/24 HOURS TOPICAL PATCH TD SCH (10:28)
[2019-03-08] MEDS: BUPRENORPHINE/NALOXONE 8 MG/2 MG FILM PACKET SL SCH ×2 (10:28→22:02)
[2019-03-08] MEDS: PRENATAL VITAMINS W/ FOLIC ACID TABLET (FP) PO SCH (10:29)
--- NOTE | 2019-03-08 11:37 | PN ---
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 poor appetite moderate toleration to food and fluid ensure 120 ml bid Objective: 03/08/19 11:45 Vital Signs Temperature 97.4 F L 03/08/19 09:25 Pulse Rate 110 H 03/08/19 09:25 Respiratory Rate 18 03/08/19 09:25 Blood Pressure 112/73 03/08/19 09:25 O2 Sat by Pulse Oximetry (%) Laboratory Last Values WBC 6.0 K/mm3 (4.0-10.0) 03/08/19 07:00 RBC 4.46 M/mm3 (3.60-5.2) 03/08/19 07:00 Hgb 12.9 GM/dL (10.7-15.3) 03/08/19 07:00 Hct 39.4 % (32.4-45.2) 03/08/19 07:00 MCV 88.2 fl (80-96) 03/08/19 07:00 MCH 29.0 pg (25.7-33.7) 03/08/19 07:00 MCHC 32.8 g/dl (32.0-36.0) 03/08/19 07:00 RDW 13.3 % (11.6-15.6) 03/08/19 07:00 Plt Count 220 K/MM3 (134-434) 03/08/19 07:00 MPV 8.8 fl (7.5-11.1) 03/08/19 07:00 Sodium 144 mmol/L (136-145) 03/08/19 07:00 Potassium 4.1 mmol/L (3.5-5.1) 03/08/19 07:00 Chloride 108 mmol/L (98-107) H 03/08/19 07:00 Carbon Dioxide 29 mmol/L (21-32) 03/08/19 07:00 Anion Gap 7 MMOL/L (8-16) L 03/08/19 07:00 BUN 19 mg/dL (7-18) H 03/08/19 07:00 Creatinine 0.7 mg/dL (0.55-1.3) 03/08/19 07:00 Creat Clearance w eGFR 87.20 (>60) 03/08/19 07:00 Random Glucose 73 mg/dL (74-106) L 03/08/19 07:00 Calcium 8.6 mg/dL (8.5-10.1) 03/08/19 07:00 Total Bilirubin 1.3 mg/dL (0.2-1) H 03/08/19 07:00 AST 21 U/L (15-37) 03/08/19 07:00 ALT 68 U/L (13-61) H 03/08/19 07:00 Alkaline Phosphatase 91 U/L (45-117) 03/08/19 07:00 Total Protein 6.6 g/dl (6.4-8.2) 03/08/19 07:00 Albumin 3.7 g/dl (3.4-5.0) 03/08/19 07:00 lab noted Assessment: 03/08/19 11:46 withdrawal sx Plan: continue detox
--- NOTE | 2019-03-08 12:28 | CONSULT ---
[facility] Psychiatric Consult - Data Date of interview: 03/08/19 Admission source: [facility] Identifying data: Readmission to [facility] for this 54 y/o female self -referred for detoxification treatment (opioid, benzodiazepine). Examined on 3 . Patient is , a mother of two, domiciled and employed as a hairdresser. Substance Abuse History: Confirmed by the patient in this interview. Details in current [facility] report : Smoking history: Current every day smoker. Have you smoked in the past 12 months: Yes. Aproximately how many cigarettes per day: 10 (Also uses Jhuul). Cigars Per Day: 0. Hx Chewing Tobacco Use: No. Initiated information on smoking cessation: Yes. 'Breaking Loose' booklet given : 03/07/19. - Substance & Tx. History. Hx Alcohol Use: No. Hx Substance Use: Yes. Substance Use Type: Heroin, Prescribed (Valium). - Substances abused. * * Diazepam. Substance route: Oral. Frequency: Daily. Amount used: 10mg. Age of first use: 50. Date of last use: 03/04/19 Medical History: History bronchial asthma (no exacerbation for years), right knee pain, orthosurgery (left knee), hypertension and history of discal disease (herniation). Psychiatric History: Patient denies. Physical/Sexual Abuse/Trauma History: Patient denies. Additional Comment: Urine drug screen results: BZO-Benzodiazepines, BUP- Suboxone. Noted. Mental Status Exam - Mental Status Exam Alert and Oriented to: Time, Place, Person Cognitive Function: Good Patient Appearance: Well Groomed Mood: Withdrawn, Anxious, Hopeful Affect: Appropriate, Mood Congruent Patient Behavior: Fatigued, Cooperative Speech Pattern: Clear, Appropriate Voice Loudness: Normal Thought Process: Intact, Goal Oriented Thought Disorder: Not Present Hallucinations: Denies Suicidal Ideation: Denies Homicidal Ideation: Denies Insight/Judgement: Poor Sleep: Well Appetite: Good Muscle strength/Tone: Normal Gait/Station: Normal Psychiatric Findings - Problem List ([place] 1, 2,3) (1) Opioid dependence on agonist therapy Current Visit: Yes Status: Chronic Comment: on Suboxone (2) Sedative, hypnotic or anxiolytic dependence with withdrawal, uncomplicated Current Visit: Yes Status: Acute (3) Nicotine dependence Current Visit: Yes Status: Chronic Qualifiers: Nicotine product type: cigarettes Substance use status: uncomplicated Qualified Code(s): F17.210 - Nicotine dependence, cigarettes, uncomplicated (4) Drug-induced mood disorder Current Visit: Yes Status: Chronic (5) Insomnia Current Visit: Yes Status: Chronic - Initial Treatment Plan Initial Treatment Plan: Psychoeducation. Sleep hygiene. Detoxification in progress. Strategies of relapse prevention : discussed with the patient. Support. Seroquel 50 mg po hs. Ordered at patient's specific request. Side effect/benefits discussed. Patient is made aware of the risk of metabolic syndrome, sedation, orthostasis and abnormal involuntary movements. Ms Sesay reports remarkable improvement of sleep architecture on seroquel at bedtime. Consent (verbal) granted to MD. Sim.
--- NOTE | 2019-03-08 15:38 | EKG ---
Test Reason : Blood Pressure : / mmHG Vent. Rate : 075 BPM Atrial Rate : 075 BPM P-R Int : 146 ms QRS Dur : 094 ms QT Int : 408 ms P-R-T Axes : 059 020 042 degrees QTc Int : 455 ms NORMAL SINUS RHYTHM MINIMAL VOLTAGE CRITERIA FOR LVH, MAY BE NORMAL VARIANT BORDERLINE ECG WHEN COMPARED WITH ECG OF 11-JAN-2018 01:01, T WAVE VARIATION Confirmed by CHARMAINE DIXON MD ([id number]) on 03/08/2019 3:37:36 PM Referred By: EDIT Confirmed By:CHARMAINE DIXON MD
[2019-03-08 17:31] LABS: EPI CELLS 4.4 /HPF (0-5); PH,URINE 6.5 (5.0-8.0); URINE APPEARANCE CLEAR; URINE BACTERIA 76.6 /hpf (NEGATIVE); URINE BILIRUBIN NEGATIVE (NEGATIVE); URINE CASTS 4 /hpf (0-8); URINE COLOR DK YELLOW; URINE GLUCOSE (UA) NEGATIVE (NEGATIVE); URINE KETONE TRACE (NEGATIVE); URINE LEUK ESTERASE TRACE (NEGATIVE); URINE NITRITE NEGATIVE (NEGATIVE); URINE PROTEIN NEGATIVE (NEGATIVE); URINE RBC 2 /hpf (0-4); URINE WBC 2 /hpf (0-5)
[2019-03-08 18:34] LABS: URINE CRYSTALS CALCIUM OXALATE 3+ /hpf
[2019-03-08] MEDS: LORazepam 1 MG TABLET PO PRN (18:55)
[2019-03-08] MEDS ORDERED: QUEtiapine FUMARATE 50 MG TABLET PO ONE (22:00)
[2019-03-08] MEDS: THIAMINE HCL 100 MG TABLET (FP) PO SCH (22:02)
[2019-03-08] MEDS: LORazepam 1 MG TABLET PO SCH (22:02)
[2019-03-09] MEDS: LORazepam 1 MG TABLET PO SCH ×3 (06:01→17:28)
[2019-03-09] MEDS: BUPRENORPHINE/NALOXONE 8 MG/2 MG FILM PACKET SL SCH ×2 (10:40→22:05)
[2019-03-09] MEDS: PRENATAL VITAMINS W/ FOLIC ACID TABLET (FP) PO SCH (10:40)
[2019-03-09] MEDS: NICOTINE 21 MG/24 HOURS TOPICAL PATCH TD SCH (10:40)
[2019-03-09] MEDS: LORazepam 1 MG TABLET PO PRN (13:12)
--- NOTE | 2019-03-09 14:24 | PN ---
S CIWA - CIWA Score Nausea/Vomitin-No Nausea/No Vomiting Muscle Tremors: 1-None Visible, but [place] Anxiety: 3 Agitation: 2 Paroxysmal Sweats: 1-Minimal Palms Moist Orientation: 0-Oriented Tacttile Disturbances: 0-None Auditory Disturbances: 0-None Visual Disturbances: 0-None Headache: 0-None Present CIWA-Ar Total Score: 7 [facility] Progress Note (SOAP) Subjective: anxious feeling tired but able to perform ADLs Objective: 03/09/19 14:22 Vital Signs Temperature 97.2 F L 03/09/19 13:26 Pulse Rate 84 03/09/19 13:26 Respiratory Rate 18 03/09/19 13:26 Blood Pressure 112/76 03/09/19 13:26 O2 Sat by Pulse Oximetry (%) Laboratory Last Values WBC 6.0 K/mm3 (4.0-10.0) 03/08/19 07:00 RBC 4.46 M/mm3 (3.60-5.2) 03/08/19 07:00 Hgb 12.9 GM/dL (10.7-15.3) 03/08/19 07:00 Hct 39.4 % (32.4-45.2) 03/08/19 07:00 MCV 88.2 fl (80-96) 03/08/19 07:00 MCH 29.0 pg (25.7-33.7) 03/08/19 07:00 MCHC 32.8 g/dl (32.0-36.0) 03/08/19 07:00 RDW 13.3 % (11.6-15.6) 03/08/19 07:00 Plt Count 220 K/MM3 (134-434) 03/08/19 07:00 MPV 8.8 fl (7.5-11.1) 03/08/19 07:00 Sodium 144 mmol/L (136-145) 03/08/19 07:00 Potassium 4.1 mmol/L (3.5-5.1) 03/08/19 07:00 Chloride 108 mmol/L (98-107) H 03/08/19 07:00 Carbon Dioxide 29 mmol/L (21-32) 03/08/19 07:00 Anion Gap 7 MMOL/L (8-16) L 03/08/19 07:00 BUN 19 mg/dL (7-18) H 03/08/19 07:00 Creatinine 0.7 mg/dL (0.55-1.3) 03/08/19 07:00 Creat Clearance w eGFR 87.20 (>60) 03/08/19 07:00 Random Glucose 73 mg/dL (74-106) L 03/08/19 07:00 Calcium 8.6 mg/dL (8.5-10.1) 03/08/19 07:00 Total Bilirubin 1.3 mg/dL (0.2-1) H 03/08/19 07:00 AST 21 U/L (15-37) 03/08/19 07:00 ALT 68 U/L (13-61) H 03/08/19 07:00 Alkaline Phosphatase 91 U/L (45-117) 03/08/19 07:00 Total Protein 6.6 g/dl (6.4-8.2) 03/08/19 07:00 Albumin 3.7 g/dl (3.4-5.0) 03/08/19 07:00 Urine Color Dk yellow 03/07/19 23:00 Urine Appearance Clear 03/07/19 23:00 Urine pH 6.5 (5.0-8.0) 03/07/19 23:00 Ur Specific [place] 1.029 (1.010-1.035) 03/07/19 23:00 Urine Protein Negative (NEGATIVE) 03/07/19 23:00 Urine Glucose (UA) Negative (NEGATIVE) 03/07/19 23:00 Urine Ketones Trace (NEGATIVE) H 03/07/19 23:00 Urine Blood Negative (NEGATIVE) 03/07/19 23:00 Urine Nitrite Negative (NEGATIVE) 03/07/19 23:00 Urine Bilirubin Negative (NEGATIVE) 03/07/19 23:00 Urine Urobilinogen 1.0 mg/dL (0.2-1.0) 03/07/19 23:00 Ur Leukocyte Esterase Trace (NEGATIVE) 03/07/19 23:00 Urine WBC (Auto) 2 /hpf (0-5) 03/07/19 23:00 Urine RBC (Auto) 2 /hpf (0-4) 03/07/19 23:00 Urine Casts (Auto) 4 /hpf (0-8) 03/07/19 23:00 U Epithel Cells (Auto) 4.4 /HPF (0-5) 03/07/19 23:00 Urine Crystals (Auto) Calcium oxalate 3+ /hpf 03/07/19 23:00 Urine Bacteria (Auto) 76.6 /hpf (NEGATIVE) 03/07/19 23:00 RPR Titer Nonreactive (NONREACTIVE) 03/08/19 07:00 HIV 1&2 Antibody Screen Negative 03/08/19 07:00 HIV P24 Antigen Negative 03/08/19 07:00 lab noted Assessment: 03/09/19 14:23 mild withdrawal sx Plan: continue detox
[2019-03-09] MEDS ORDERED: QUEtiapine FUMARATE 50 MG TABLET PO SCH (22:00)
[2019-03-09] MEDS: LORazepam 0.5 MG TABLET PO SCH (22:05)
[2019-03-09] MEDS: THIAMINE HCL 100 MG TABLET (FP) PO SCH (22:05)
[2019-03-09] MEDS ORDERED: LORazepam 0.5 MG TABLET PO PRN (23:00)
[2019-03-10] MEDS: LORazepam 0.5 MG TABLET PO SCH (05:44)
[2019-03-10] MEDS ORDERED: BUPRENORPHINE/NALOXONE 8 MG/2 MG FILM PACKET SL ONE (06:11)
[2019-03-10 06:38] VITALS: BP 134/84; PULSE 98; TEMP 96.1
--- NOTE | 2019-03-10 15:03 | DS ---
[facility] Detox Discharge Summary Admission Date: 03/07/19 Discharge Date: 03/10/19 - History Present History: Sedative Dependence Additional Comments: 54 years old female admitted on 03/07/19 for benzo withdrawal stabilization completed detox regimen aftercare suboxone maintenance program - Physical Exam Results Vital Signs: Vital Signs Temperature 96.1 F L 03/10/19 06:37 Pulse Rate 98 H 03/10/19 06:37 Respiratory Rate 18 03/10/19 06:37 Blood Pressure 134/84 03/10/19 06:37 O2 Sat by Pulse Oximetry (%) Pertinent Admission Physical Exam Findings: benzo withdrawal sx Laboratory Last Values WBC 6.0 K/mm3 (4.0-10.0) 03/08/19 07:00 RBC 4.46 M/mm3 (3.60-5.2) 03/08/19 07:00 Hgb 12.9 GM/dL (10.7-15.3) 03/08/19 07:00 Hct 39.4 % (32.4-45.2) 03/08/19 07:00 MCV 88.2 fl (80-96) 03/08/19 07:00 MCH 29.0 pg (25.7-33.7) 03/08/19 07:00 MCHC 32.8 g/dl (32.0-36.0) 03/08/19 07:00 RDW 13.3 % (11.6-15.6) 03/08/19 07:00 Plt Count 220 K/MM3 (134-434) 03/08/19 07:00 MPV 8.8 fl (7.5-11.1) 03/08/19 07:00 Sodium 144 mmol/L (136-145) 03/08/19 07:00 Potassium 4.1 mmol/L (3.5-5.1) 03/08/19 07:00 Chloride 108 mmol/L (98-107) H 03/08/19 07:00 Carbon Dioxide 29 mmol/L (21-32) 03/08/19 07:00 Anion Gap 7 MMOL/L (8-16) L 03/08/19 07:00 BUN 19 mg/dL (7-18) H 03/08/19 07:00 Creatinine 0.7 mg/dL (0.55-1.3) 03/08/19 07:00 Creat Clearance w eGFR 87.20 (>60) 03/08/19 07:00 Random Glucose 73 mg/dL (74-106) L 03/08/19 07:00 Calcium 8.6 mg/dL (8.5-10.1) 03/08/19 07:00 Total Bilirubin 1.3 mg/dL (0.2-1) H 03/08/19 07:00 AST 21 U/L (15-37) 03/08/19 07:00 ALT 68 U/L (13-61) H 03/08/19 07:00 Alkaline Phosphatase 91 U/L (45-117) 03/08/19 07:00 Total Protein 6.6 g/dl (6.4-8.2) 03/08/19 07:00 Albumin 3.7 g/dl (3.4-5.0) 03/08/19 07:00 Urine Color Dk yellow 03/07/19 23:00 Urine Appearance Clear 03/07/19 23:00 Urine pH 6.5 (5.0-8.0) 03/07/19 23:00 Ur Specific [place] 1.029 (1.010-1.035) 03/07/19 23:00 Urine Protein Negative (NEGATIVE) 03/07/19 23:00 Urine Glucose (UA) Negative (NEGATIVE) 03/07/19 23:00 Urine Ketones Trace (NEGATIVE) H 03/07/19 23:00 Urine Blood Negative (NEGATIVE) 03/07/19 23:00 Urine Nitrite Negative (NEGATIVE) 03/07/19 23:00 Urine Bilirubin Negative (NEGATIVE) 03/07/19 23:00 Urine Urobilinogen 1.0 mg/dL (0.2-1.0) 03/07/19 23:00 Ur Leukocyte Esterase Trace (NEGATIVE) 03/07/19 23:00 Urine WBC (Auto) 2 /hpf (0-5) 03/07/19 23:00 Urine RBC (Auto) 2 /hpf (0-4) 03/07/19 23:00 Urine Casts (Auto) 4 /hpf (0-8) 03/07/19 23:00 U Epithel Cells (Auto) 4.4 /HPF (0-5) 03/07/19 23:00 Urine Crystals (Auto) Calcium oxalate 3+ /hpf 03/07/19 23:00 Urine Bacteria (Auto) 76.6 /hpf (NEGATIVE) 03/07/19 23:00 RPR Titer Nonreactive (NONREACTIVE) 03/08/19 07:00 HIV 1&2 Antibody Screen Negative 03/08/19 07:00 HIV P24 Antigen Negative 03/08/19 07:00 lab noted - Treatment Hospital Course: Detox Protocol Followed, Detoxed Safely, Responded well, Discharged Condition Good, Rehab Referral Accepted Patient has Accepted a Rehab Referral to: suboxone maintenance program - Medication Discharge Medications: Ambulatory Orders Buprenorphine/Naloxone [Suboxone 8Mg/2Mg Sl Film -] 1 each SL BID 03/07/19 Quetiapine Fumarate [Seroquel -] 100 mg PO HS 03/07/19 - Diagnosis (1) Sedative, hypnotic or anxiolytic dependence with withdrawal, uncomplicated Status: Acute (2) Nicotine dependence Status: Acute Qualifiers: Nicotine product type: cigarettes Substance use status: in withdrawal Qualified Code(s): F17.213 - Nicotine dependence, cigarettes, with withdrawal - AMA Did Patient Leave Against Medical Advice: No
== END 2019-03-10 08:25 | disposition home or self-care (01) | DRG 773 ==
LOC: YASAS 17:53 → Y3N 20:05
PROVIDERS: ADMIT Surgery; ATTEND Surgery
PROC: HZ2ZZZZ Detoxification Services for Substance Abuse Treatment (ICD-10-PCS; principal; 2019-03-07)
DX: F13.230 Sedative, hypnotic or anxiolytic dependence with withdrawal, uncomplicated (principal); F11.20 Opioid dependence, uncomplicated; F17.213 Nicotine dependence, cigarettes, with withdrawal; F19.24 Other psychoactive substance dependence with psychoactive substance-induced mood disorder; I10 Essential (primary) hypertension; G47.00 Insomnia, unspecified; J45.909 Unspecified asthma, uncomplicated; L40.9 Psoriasis, unspecified; R10.811 Right upper quadrant abdominal tenderness
CPT/HCPCS: 36415; 80053; 81003; 85027; 86593; 87389; 93005; 93010

== ENCOUNTER 2019-06-21 19:44 | Inpatient (IN) | payer OTHER ==
[2019-06-21 23:07] VITALS: BMI 22.6
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
--- NOTE | 2019-06-22 01:53 | HP ---
COWS - Scale Resting Pulse: 2= [place] 101-120 Sweatin=Flushed/Facial Moisture Restless Observation: 1= Difficult to Sit Still Pupil Size: 2= Moderately Dilated (Pupils = 4 mm) Bone or Joint Aches: 1= Mild Discomfort Runny Nose/ Eye Tearin= Nasal Congestion GI Upset > 30mins: 0= None Tremor Observation: 4= Gross Tremor/Twitching Yawning Observation: 0= None Anxiety or Irritability: 1=Feels Anxious/Irritable Goose Flesh Skin: 0=Smooth Skin COWS Score: 14 CIWA Score - Admission Criteria OASAS Guidelines: Admission for Medically Managed Detox: Requires at least one of the followin. CIWA greater than 12 2. Seizures within the past 24 hours 3. Delirium tremens within the past 24 hours 4. Hallucinations within the past 24 hours 5. Acute intervention needed for co occurring medical disorder 6. Acute intervention needed for co occurring psychiatric disorder 7. Severe withdrawal that cannot be handled at a lower level of care (continued vomiting, continued diarrhea, abnormal vital signs) requiring intravenous medication and/or fluids 8. Admission ROS [facility] Allergies/Adverse Reactions: Allergies Allergy/AdvReac Type Severity Reaction Status Date / Time No Known Allergies Allergy Verified 06/21/19 22:54 - Ebola screening Have you traveled outside of the country in the last 21 days: No (N) Have you had contact with anyone from an Ebola affected area: No Have you been sick,other than usual withdrawal symptoms: No (Denies recent exposure to measles) Do you have a fever: No Patient History - Patient Medical History Hx Anemia: No Hx Asthma: No Hx Chronic Obstructive Pulmonary Disease (COPD): No Hx Cancer: No Hx Cardiac Disorders: No Hx Congestive Heart Failure: No Hx Hypertension: No Hx Hypercholesterolemia: No Hx Pacemaker: No HX Cerebrovascular Accident: No Hx Seizures: No Hx Dementia: No Hx Diabetes: No Hx Gastrointestinal Disorders: No Hx Liver Disease: No Hx Genitourinary Disorders: No Hx Sexually Transmitted Disorders: No Hx Renal Disease (ESRD): No Hx Thyroid Disease: No Hx Human Immunodeficiency Virus (HIV): No Hx Hepatitis C: No Hx Depression: No Hx Suicide Attempt: No Hx Bipolar Disorder: No Hx Schizophrenia: No - Patient Surgical History Past Surgical History: Yes Hx Orthopedic Surgery: Yes (L KNEE surgery) Anesthesia Reaction: No - PPD History Previous Implant?: Yes Documented Results: Negative w/proof Implanted On Prior [facility] Admission?: Yes Date: 03/09/19 - Reproductive History Last Menstrual Period: 12/01/18 Patient : No - Smoking Cessation Smoking history: Current every day smoker Have you smoked in the past 12 months: Yes Aproximately how many cigarettes per day: 10 (Also uses Jhuul) Cigars Per Day: 0 Hx Chewing Tobacco Use: No Initiated information on smoking cessation: Yes - Substances abused Diazepam Substance route: Oral Frequency: Daily Amount used: 10mg Age of first use: 50 Date of last use: 03/04/19 Alcohol Substance route: Oral Frequency: Daily Amount used: 10mg Age of first use: 50 Date of last use: 03/04/19 Heroin Substance route: Inhalation Frequency: Daily Amount used: 7 bags a day Age of first use: 27 Date of last use: 06/21/19 Family Disease History - Family Disease History Family Disease History: Heart Disease: Father (PPM; ALCOHOL), Mother (CVA) Admission Physical Exam S - Vital Signs Vital Signs: Vital Signs - 24 hr 06/21/19 06/21/19 23:01 23:36 Temperature 97.7 F 97.7 F Pulse Rate 105 H 105 H Respiratory 18 18 Rate Blood Pressure 147/96 147/96 Breathalyzer - Breathalyzer Breathalyzer: 0 POC Urine test - Test device test lot number: [id number] Expiration date: 07/31/20 - Control test control: Yes Urine Drug Screen - Test Device Lot number: [id number] Expiration date: 03/30/21 - Control Is test valid?: Yes - Results Drug screen NEGATIVE: No Urine drug screen results: MOP-Opiates, OXY-Oxycodone, MTD-Methadone, BZO- Benzodiazepines, BUP-Suboxone
[2019-06-22] MEDS ORDERED: METHADONE HCL 10 MG TABLET (FOR DETOX USE ONLY) PO ONE (02:05)
[2019-06-22] MEDS ORDERED: NICOTINE POLACRILEX 2 MG GUM BUC PRN (02:05)
[2019-06-22] MEDS ORDERED: MELATONIN 5 MG TABLETS PO PRN (02:05)
[2019-06-22] MEDS ORDERED: MENTHOL/PHENOL 1 EACH UD MM PRN (02:05)
[2019-06-22] MEDS ORDERED: MAGNESIUM CITRATE 300 ML BOTTLE PO PRN (02:05)
[2019-06-22] MEDS ORDERED: ACETAMINOPHEN 325 MG TABLET (FP) PO PRN ×2 (02:05)
[2019-06-22] MEDS ORDERED: MAG HYDROX/AL HYDROX/SIMETH 30 ML UNIT-DOSE CUP PO PRN (02:05)
[2019-06-22] MEDS ORDERED: MAGNESIUM HYDROX 2400MG/30ML ORAL SUSPENSION 30 ML CUP PO PRN (02:05)
[2019-06-22] MEDS ORDERED: BISMUTH SUBSALICYLATE 524 MG/30 ML UD PO PRN (02:05)
[2019-06-22] MEDS ORDERED: IBUPROFEN 400 MG TABLET (FP) PO PRN (02:05)
[2019-06-22] MEDS ORDERED: diazePAM 5 MG TABLET PO ONE (02:09)
--- NOTE | 2019-06-22 09:38 | PN ---
S CIWA - CIWA Score Nausea/Vomitin Muscle Tremors: 2 Anxiety: 2 Agitation: 2 Paroxysmal Sweats: 1-Minimal Palms Moist Orientation: 0-Oriented Tacttile Disturbances: 1-Very Mild Itch/Numbness Auditory Disturbances: 1-Very Mild Visual Disturbances: 0-None Headache: 2-Mild CIWA-Ar Total Score: 13 BHS COWS - Scale Resting Pulse: 0= [place] 80 or Below Sweatin= Chills/Flushing Restless Observation: 1= Difficult to Sit Still Pupil Size: 1= Pupils >than Normal Bone or Joint Aches: 2= Severe Diffuse Aches Runny Nose/ Eye Tearin= Nasal Congestion GI Upset > 30mins: 2= Nausea/Diarrhea Tremor Observation of Outstretched Hands: 2= Slight Tremor Visible Yawning Observation: 2= >3x During Session Anxiety or Irritability: 2=Irritable/Anxious Goose Flesh Skin: 0=Smooth Skin COWS Score: 14 BHS Progress Note (SOAP) Subjective: alert,irritable,anxious,interrupted sleep,tremor,pain in thee body and back Objective: 06/22/19 09:37 Vital Signs Temperature 97.5 F L 06/22/19 09:30 Pulse Rate 62 06/22/19 09:30 Respiratory Rate 16 06/22/19 09:30 Blood Pressure 132/80 06/22/19 09:30 O2 Sat by Pulse Oximetry (%) 06/22/19 09:37 Laboratory Last Values POC Urine HCG, Qual Negative 06/21/19 23:38 06/22/19 09:37 labs pending Assessment: 06/22/19 09:37 withdrawal symptom Plan: continue detox
[2019-06-22] MEDS: NICOTINE 14 MG/24 HOURS TOPICAL PATCH TD SCH (10:40)
[2019-06-22] MEDS: PRENATAL VITAMINS W/ FOLIC ACID TABLET (FP) PO SCH (10:40)
[2019-06-22] MEDS: diazePAM 5 MG TABLET PO PRN ×4 (10:41→22:31)
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
[2019-06-22 12:24] LABS: HEMATOCRIT 40.3 % (32.4-45.2); HEMOGLOBIN 13.4 GM/dL (10.7-15.3); MCH 29.4 pg (25.7-33.7); MCHC 33.2 g/dl (32.0-36.0); MEAN CELL VOLUME 88.8 fl (80-96); MEAN PLT VOLUME 9.1 fl (7.5-11.1); PLATELET COUNT 223 K/MM3 (134-434); RBC 4.54 M/mm3 (3.60-5.2); WHITE BLOOD COUNT 8.2 K/mm3 (4.0-10.0)
[2019-06-22 12:35] LABS: BILIRUBIN,TOTAL 0.4 mg/dL (0.2-1); BLOOD UREA NITROGEN 15.7 mg/dL (7-18); CALCIUM 9.3 mg/dL (8.5-10.1); CREATININE 0.6 mg/dL (0.55-1.3); POTASSIUM 3.9 mmol/L (3.5-5.1)
[2019-06-22] MEDS: METHOCARBAMOL 500 MG TABLET PO PRN (14:35)
[2019-06-22] MEDS: THIAMINE HCL 100 MG TABLET (FP) PO SCH (22:28)
[2019-06-22] MEDS: MELATONIN 5 MG TABLETS PO PRN (22:30)
[2019-06-23] MEDS: diazePAM 5 MG TABLET PO PRN ×4 (06:13→22:22)
[2019-06-23] MEDS ORDERED: METHADONE HCL 10 MG TABLET (FOR DETOX USE ONLY) ONE (09:07)
[2019-06-23] MEDS ORDERED: METHADONE HCL 5 MG TABLET (FOR DETOX USE ONLY) ONE (09:07)
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
[2019-06-23] MEDS ORDERED: METHADONE (DETOX) 20 MG, METHADONE (DETOX) 5 MG PO ONE (10:00)
[2019-06-23] MEDS: PRENATAL VITAMINS W/ FOLIC ACID TABLET (FP) PO SCH (10:29)
[2019-06-23] MEDS: NICOTINE 14 MG/24 HOURS TOPICAL PATCH TD SCH (10:29)
[2019-06-23] MEDS: METHOCARBAMOL 500 MG TABLET PO PRN (14:18)
[2019-06-23 17:42] LABS: URINE APPEARANCE TURBID; URINE BILIRUBIN NEGATIVE (NEGATIVE); URINE COLOR YELLOW; URINE GLUCOSE (UA) NEGATIVE (NEGATIVE); URINE KETONE NEGATIVE (NEGATIVE)
[2019-06-23 17:43] LABS: EPI CELLS FEW /HPF (0-5/HPF); URINE BACTERIA MANY /hpf (NEGATIVE); URINE LEUK ESTERASE 3+ (NEGATIVE); URINE NITRITE POSITIVE (NEGATIVE); URINE PROTEIN TRACE (NEGATIVE); URINE WBC 20-30 /hpf (0-5)
[2019-06-23 17:44] LABS: HYALINE CASTS 0 /lpf (0-8)
[2019-06-23] MEDS: THIAMINE HCL 100 MG TABLET (FP) PO SCH (22:21)
[2019-06-23] MEDS: MELATONIN 5 MG TABLETS PO PRN (22:21)
[2019-06-24] MEDS: diazePAM 5 MG TABLET PO PRN ×5 (02:54→22:46)
[2019-06-24] MEDS: METHOCARBAMOL 500 MG TABLET PO PRN ×2 (07:09→18:41)
[2019-06-24] MEDS ORDERED: METHADONE HCL 10 MG TABLET (FOR DETOX USE ONLY) PO ONE (10:00)
[2019-06-24] MEDS: NICOTINE 14 MG/24 HOURS TOPICAL PATCH TD SCH (10:30)
[2019-06-24] MEDS: PRENATAL VITAMINS W/ FOLIC ACID TABLET (FP) PO SCH (10:30)
--- NOTE | 2019-06-24 10:39 | PN ---
[facility] CIWA - CIWA Score Nausea/Vomitin-Mild Nausea/No Vomiting Muscle Tremors: 1-None Visible, but [place] Anxiety: 2 Agitation: 2 Paroxysmal Sweats: No Perspiration Orientation: 0-Oriented Tacttile Disturbances: 1-Very Mild Itch/Numbness Auditory Disturbances: 0-None Visual Disturbances: 0-None Headache: 2-Mild CIWA-Ar Total Score: 9 BHS COWS - Scale Resting Pulse: 0= [place] 80 or Below Sweatin= No chills or Flushing Restless Observation: 1= Difficult to Sit Still Pupil Size: 1= Pupils >than Normal Bone or Joint Aches: 2= Severe Diffuse Aches Runny Nose/ Eye Tearin= Nasal Congestion GI Upset > 30mins: 1= Stomach Cramp Tremor Observation of Outstretched Hands: 1= Tremor [place], Not Seen Yawning Observation: 0= None Anxiety or Irritability: 2=Irritable/Anxious Goose Flesh Skin: 0=Smooth Skin COWS Score: 9 S Progress Note (SOAP) Subjective: alert,irritable,anxious,interrupted sleep,pain in the body and back,no urinary symptom Objective: 06/24/19 10:38 Vital Signs Temperature 97.5 F L 06/24/19 09:21 Pulse Rate 64 06/24/19 09:21 Respiratory Rate 18 06/24/19 09:21 Blood Pressure 112/69 06/24/19 09:21 O2 Sat by Pulse Oximetry (%) Laboratory Last Values WBC 8.2 K/mm3 (4.0-10.0) 06/22/19 07:00 RBC 4.54 M/mm3 (3.60-5.2) 06/22/19 07:00 Hgb 13.4 GM/dL (10.7-15.3) 06/22/19 07:00 Hct 40.3 % (32.4-45.2) 06/22/19 07:00 MCV 88.8 fl (80-96) 06/22/19 07:00 MCH 29.4 pg (25.7-33.7) 06/22/19 07:00 MCHC 33.2 g/dl (32.0-36.0) 06/22/19 07:00 RDW 13.0 % (11.6-15.6) 06/22/19 07:00 Plt Count 223 K/MM3 (134-434) 06/22/19 07:00 MPV 9.1 fl (7.5-11.1) 06/22/19 07:00 Sodium 141 mmol/L (136-145) 06/22/19 07:00 Potassium 3.9 mmol/L (3.5-5.1) 06/22/19 07:00 Chloride 106 mmol/L (98-107) 06/22/19 07:00 Carbon Dioxide 28 mmol/L (21-32) 06/22/19 07:00 Anion Gap 7 MMOL/L (8-16) L 06/22/19 07:00 BUN 15.7 mg/dL (7-18) 06/22/19 07:00 Creatinine 0.6 mg/dL (0.55-1.3) 06/22/19 07:00 Est GFR (CKD-EPI)AfAm 119.77 06/22/19 07:00 Est GFR (CKD-EPI)NonAf 103.34 06/22/19 07:00 Random Glucose 91 mg/dL (74-106) 06/22/19 07:00 Calcium 9.3 mg/dL (8.5-10.1) 06/22/19 07:00 Total Bilirubin 0.4 mg/dL (0.2-1) 06/22/19 07:00 AST 14 U/L (15-37) L 06/22/19 07:00 ALT 19 U/L (13-61) 06/22/19 07:00 Alkaline Phosphatase 70 U/L (45-117) 06/22/19 07:00 Total Protein 7.0 g/dl (6.4-8.2) 06/22/19 07:00 Albumin 4.0 g/dl (3.4-5.0) 06/22/19 07:00 Urine Color Yellow 06/23/19 15:40 Urine Appearance Turbid 06/23/19 15:40 Urine pH 7.0 (5.0-8.0) 06/23/19 15:40 Ur Specific [place] 1.008 (1.010-1.035) L 06/23/19 15:40 Urine Protein Trace (NEGATIVE) 06/23/19 15:40 Urine Glucose (UA) Negative (NEGATIVE) 06/23/19 15:40 Urine Ketones Negative (NEGATIVE) 06/23/19 15:40 Urine Blood 2+ (NEGATIVE) H 06/23/19 15:40 Urine Nitrite Positive (NEGATIVE) H 06/23/19 15:40 Urine Bilirubin Negative (NEGATIVE) 06/23/19 15:40 Urine Urobilinogen 1.0 mg/dL (0.2-1.0) 06/23/19 15:40 Ur Leukocyte Esterase 3+ (NEGATIVE) H 06/23/19 15:40 Urine WBC (Auto) 20-30 /hpf (0-5) 06/23/19 15:40 Urine RBC (Auto) 5-8 /hpf (0-4) 06/23/19 15:40 Urine Casts (Auto) 0 /lpf (0-8) 06/23/19 15:40 U Epithel Cells (Auto) Few /HPF (0-5/HPF) 06/23/19 15:40 Urine Bacteria (Auto) Many /hpf (NEGATIVE) 06/23/19 15:40 POC Urine HCG, Qual Negative 06/21/19 23:38 RPR Titer Nonreactive (NONREACTIVE) 06/22/19 07:00 Assessment: 06/24/19 10:39 withdrawal symptom Plan: continue detox,urinalysis noted,no urinary complaint,,will encourage fluid, repeat ua
[2019-06-24] MEDS: MELATONIN 5 MG TABLETS PO PRN (22:05)
[2019-06-24] MEDS: THIAMINE HCL 100 MG TABLET (FP) PO SCH (22:05)
[2019-06-25] MEDS: diazePAM 5 MG TABLET PO PRN (05:51)
[2019-06-25] MEDS ORDERED: METHADONE HCL 5 MG TABLET (FOR DETOX USE ONLY) ONE (09:09)
[2019-06-25] MEDS ORDERED: METHADONE HCL 10 MG TABLET (FOR DETOX USE ONLY) ONE (09:09)
--- NOTE | 2019-06-25 09:22 | PN ---
[facility] CIWA - CIWA Score Nausea/Vomitin-No Nausea/No Vomiting Muscle Tremors: 1-None Visible, but [place] Anxiety: 1-Mildly Anxious Agitation: 1-Slight > Activity Paroxysmal Sweats: No Perspiration Orientation: 0-Oriented Tacttile Disturbances: 0-None Auditory Disturbances: 0-None Visual Disturbances: 0-None Headache: 0-None Present CIWA-Ar Total Score: 3 S COWS - Scale Resting Pulse: 0= [place] 80 or Below Sweatin= No chills or Flushing Restless Observation: 1= Difficult to Sit Still Pupil Size: 0= Normal to Room Light Bone or Joint Aches: 1= Mild Discomfort Runny Nose/ Eye Tearin= None GI Upset > 30mins: 0= None Tremor Observation of Outstretched Hands: 1= Tremor [place], Not Seen Yawning Observation: 0= None Anxiety or Irritability: 1=Feels Anxious/Irritable Goose Flesh Skin: 0=Smooth Skin COWS Score: 4 S Progress Note (SOAP) Subjective: alert,no complaint Objective: 06/25/19 09:16 Vital Signs Temperature 97.5 F L 06/25/19 06:08 Pulse Rate 80 06/25/19 06:08 Respiratory Rate 16 06/25/19 06:08 Blood Pressure 139/95 06/25/19 06:08 O2 Sat by Pulse Oximetry (%) Assessment: 06/25/19 09:16 patient feel much better,would like to be discharged today,has appointment with [facility] methadone maintenance on Fri06/28/19 Plan: stable for discharge today,follow up with methadone program as arrangement
--- NOTE | 2019-06-25 09:29 | DS ---
[facility] Detox Discharge Summary Admission Date: 06/22/19 Discharge Date: 06/25/19 - History Present History: Alcohol Dependence, Opioid Dependence, Sedative Dependence Pertinent Past History: essential hypertension nicotine dependence - Physical Exam Results Vital Signs: Vital Signs Temperature 97.5 F L 06/25/19 06:08 Pulse Rate 80 06/25/19 06:08 Respiratory Rate 16 06/25/19 06:08 Blood Pressure 139/95 06/25/19 06:08 O2 Sat by Pulse Oximetry (%) Pertinent Admission Physical Exam Findings: withdrawal signs and symptom Vital Signs Temperature 97.5 F L 06/25/19 06:08 Pulse Rate 80 06/25/19 06:08 Respiratory Rate 16 06/25/19 06:08 Blood Pressure 139/95 06/25/19 06:08 O2 Sat by Pulse Oximetry (%) Laboratory Last Values WBC 8.2 K/mm3 (4.0-10.0) 06/22/19 07:00 RBC 4.54 M/mm3 (3.60-5.2) 06/22/19 07:00 Hgb 13.4 GM/dL (10.7-15.3) 06/22/19 07:00 Hct 40.3 % (32.4-45.2) 06/22/19 07:00 MCV 88.8 fl (80-96) 06/22/19 07:00 MCH 29.4 pg (25.7-33.7) 06/22/19 07:00 MCHC 33.2 g/dl (32.0-36.0) 06/22/19 07:00 RDW 13.0 % (11.6-15.6) 06/22/19 07:00 Plt Count 223 K/MM3 (134-434) 06/22/19 07:00 MPV 9.1 fl (7.5-11.1) 06/22/19 07:00 Sodium 141 mmol/L (136-145) 06/22/19 07:00 Potassium 3.9 mmol/L (3.5-5.1) 06/22/19 07:00 Chloride 106 mmol/L (98-107) 06/22/19 07:00 Carbon Dioxide 28 mmol/L (21-32) 06/22/19 07:00 Anion Gap 7 MMOL/L (8-16) L 06/22/19 07:00 BUN 15.7 mg/dL (7-18) 06/22/19 07:00 Creatinine 0.6 mg/dL (0.55-1.3) 06/22/19 07:00 Est GFR (CKD-EPI)AfAm 119.77 06/22/19 07:00 Est GFR (CKD-EPI)NonAf 103.34 06/22/19 07:00 Random Glucose 91 mg/dL (74-106) 06/22/19 07:00 Calcium 9.3 mg/dL (8.5-10.1) 06/22/19 07:00 Total Bilirubin 0.4 mg/dL (0.2-1) 06/22/19 07:00 AST 14 U/L (15-37) L 06/22/19 07:00 ALT 19 U/L (13-61) 06/22/19 07:00 Alkaline Phosphatase 70 U/L (45-117) 06/22/19 07:00 Total Protein 7.0 g/dl (6.4-8.2) 06/22/19 07:00 Albumin 4.0 g/dl (3.4-5.0) 06/22/19 07:00 Urine Color Yellow 06/23/19 15:40 Urine Appearance Turbid 06/23/19 15:40 Urine pH 7.0 (5.0-8.0) 06/23/19 15:40 Ur Specific [place] 1.008 (1.010-1.035) L 06/23/19 15:40 Urine Protein Trace (NEGATIVE) 06/23/19 15:40 Urine Glucose (UA) Negative (NEGATIVE) 06/23/19 15:40 Urine Ketones Negative (NEGATIVE) 06/23/19 15:40 Urine Blood 2+ (NEGATIVE) H 06/23/19 15:40 Urine Nitrite Positive (NEGATIVE) H 06/23/19 15:40 Urine Bilirubin Negative (NEGATIVE) 06/23/19 15:40 Urine Urobilinogen 1.0 mg/dL (0.2-1.0) 06/23/19 15:40 Ur Leukocyte Esterase 3+ (NEGATIVE) H 06/23/19 15:40 Urine WBC (Auto) 20-30 /hpf (0-5) 06/23/19 15:40 Urine RBC (Auto) 5-8 /hpf (0-4) 06/23/19 15:40 Urine Casts (Auto) 0 /lpf (0-8) 06/23/19 15:40 U Epithel Cells (Auto) Few /HPF (0-5/HPF) 06/23/19 15:40 Urine Bacteria (Auto) Many /hpf (NEGATIVE) 06/23/19 15:40 POC Urine HCG, Qual Negative 06/21/19 23:38 RPR Titer Nonreactive (NONREACTIVE) 06/22/19 07:00 - Treatment Hospital Course: Detox Protocol Followed, Detoxed Safely, Responded well, Discharged Condition Good Patient has Accepted a Rehab Referral to: declined - Medication Discharge Medications: Ambulatory Orders Diazepam 10 mg PO QID 06/21/19 - Diagnosis (1) Opioid dependence with withdrawal Current Visit: Yes Status: Acute (2) Anxiolytic dependence with current use Current Visit: Yes Status: Chronic (3) Essential (primary) hypertension Current Visit: Yes Status: Chronic (4) Nicotine dependence Current Visit: Yes Status: Chronic Qualifiers: Nicotine product type: cigarettes Substance use status: in withdrawal Qualified Code(s): F17.213 - Nicotine dependence, cigarettes, with withdrawal (5) Psoriasis Current Visit: Yes Status: Chronic (6) Alcohol dependence with uncomplicated withdrawal Current Visit: Yes Status: Acute
[2019-06-25 09:37] VITALS: BP 144/99; PULSE 75; TEMP 98.1
[2019-06-25] MEDS ORDERED: METHADONE (DETOX) 10 MG, METHADONE (DETOX) 5 MG PO ONE (10:00)
[2019-06-25] MEDS: PRENATAL VITAMINS W/ FOLIC ACID TABLET (FP) PO SCH (10:04)
[2019-06-25] MEDS: NICOTINE 14 MG/24 HOURS TOPICAL PATCH TD SCH (10:05)
[2019-06-26] MEDS ORDERED: METHADONE HCL 10 MG TABLET (FOR DETOX USE ONLY) PO ONE (10:00)
[2019-06-27] MEDS ORDERED: METHADONE HCL 5 MG TABLET (FOR DETOX USE ONLY) PO ONE (06:00)
== END 2019-06-25 10:30 | disposition home or self-care (01) | DRG 773 ==
LOC: YASAS 19:44 → Y6N 06-22 01:50
PROVIDERS: ADMIT Surgery; ATTEND Surgery
PROC: HZ2ZZZZ Detoxification Services for Substance Abuse Treatment (ICD-10-PCS; principal; 2019-06-22)
DX: F10.230 Alcohol dependence with withdrawal, uncomplicated (principal); F11.23 Opioid dependence with withdrawal; F13.20 Sedative, hypnotic or anxiolytic dependence, uncomplicated; F17.210 Nicotine dependence, cigarettes, uncomplicated; F19.24 Other psychoactive substance dependence with psychoactive substance-induced mood disorder; F19.282 Other psychoactive substance dependence with psychoactive substance-induced sleep disorder; D50.9 Iron deficiency anemia, unspecified; I10 Essential (primary) hypertension; L40.9 Psoriasis, unspecified
CPT/HCPCS: 36415; 80053; 81003; 81025; 85027; 86593